=== PATIENT | male | born 1930 | race African-American/Black ===

== ENCOUNTER 2016-06-13 12:39 | Observation (INO) | payer MEDICARE, MEDICAID ==
[2016-06-13 13:20] LABS: ABSOLUTE LYMPHOCYTES (AUTO) 1.3 10^3/uL (0.5-4.7); ABSOLUTE MONOCYTES (AUTO) 0.5 10^3/uL (0.1-1.4); ABSOLUTE NEUT (AUTO) 3.7 10^3/uL (1.7-8.2); BASOPHILS % (AUTO) 0.7 % (0-2); EOSINOPHILS % (AUTO) 0.7 % (0-6); HEMATOCRIT 37.8 % (37.9-51.0); HEMOGLOBIN 12.7 g/dL (13.5-17.0); HGB HCT DIFFERENCE 0.3; LYMPHOCYTES % (AUTO) 23.5 % (13-45); MEAN CORPUSCULAR HEMOGLOBIN 28.8 pg (27.0-33.4); MEAN CORPUSCULAR HGB CONC 33.7 g/dL (32.0-36.0); MEAN CORPUSCULAR VOLUME 85 fl (80-97); MONOCYTES % (AUTO) 8.1 % (3-13); RED BLOOD COUNT 4.42 10^6/uL (4.35-5.55); RED CELL DISTRIBUTION WIDTH 15.8 % (11.5-14.0); WHITE BLOOD COUNT 5.6 10^3/uL (4.0-10.5)
[2016-06-13 13:27] LABS: PROTHROMBIN TIME 12.6 SEC (11.4-15.4)
[2016-06-13 13:28] LABS: PARTIAL THROMBOPLASTIN TIME 30.2 SEC (23.5-35.8)
--- NOTE | 2016-06-13 13:38 | EKG REPORT ---
SEVERITY:- ABNORMAL ECG - SINUS TACHYCARDIA BIATRIAL ABNORMALITIES BORDERLINE LEFT AXIS DEVIATION : Confirmed by: Susanne Gordon MD 13-Jun-2016 13:37:47
[2016-06-13 13:46] LABS: ALANINE AMINOTRANSFERASE 16 U/L (21-72); ALBUMIN 3.4 g/dL (3.5-5.0); ALKALINE PHOSPHATASE 77 U/L (38-126); ANION GAP 12 (5-19); ASPARTATE AMINO TRANSFERASE 31 U/L (17-59); BILIRUBIN,TOTAL 0.6 mg/dL (0.2-1.3); BLOOD UREA NITROGEN 35 mg/dL (7-20); CALCIUM 9.3 mg/dL (8.4-10.2); CARBON DIOXIDE 26 mmol/L (22-30); CHLORIDE 101 mmol/L (98-107); CREATINE KINASE 352 U/L (55-170); CREATININE RESULT 1.97 mg/dL (0.52-1.25); GLUCOSE 100 mg/dL (75-110); POTASSIUM 4.5 mmol/L (3.6-5.0); SODIUM 138.7 mmol/L (137-145); TOTAL PROTEIN 6.7 g/dL (6.3-8.2)
[2016-06-13 13:57] LABS: CREATINE KINASE MB 4.99 ng/mL (<4.55)
[2016-06-13 14:09] LABS: TROPONIN I 0.034 ng/mL
[2016-06-13] MEDS ORDERED: ASPIRIN/DIPYRIDAMOLE 25-200 MG 1 CAP.SR CPMP.12HR PO ONE (14:25)
--- NOTE | 2016-06-13 14:25 | ER Document Report ---
ED General - General Chief Complaint: S/S of Possible Stroke Stated Complaint: POSSIBLE STROKE Mode of Arrival: Medic Information source: Patient Notes: 86 yr old male with hx of htn presents with complaints of left facial droop, unresponsiveness, loss of bladder function. pt denies any fevers or chills, nausea vomiting or diarrhea. pt admits ot headache symptoms resolved by the time ems brought patient ot the ED - HPI Onset: Just prior to arrival Onset/Duration: Sudden Quality of pain: No pain Severity: Mild Pain Level: Denies Associated symptoms: Weakness Exacerbated by: Denies Relieved by: Denies Similar symptoms previously: No Recently seen / treated by doctor: No - Related Data Home Medications: Current Home Medications Atorvastatin Calcium [Lipitor 40 mg Tablet] 40 mg PO QHS 06/13/16 [History] Hydralazine HCl [Apresoline 50 mg Tablet] 100 mg PO Q12 06/13/16 [History] Past Medical History - Social History Smoking Status: Never Smoker Cigarette use (# per day): No Chew tobacco use (# tins/day): No Smoking Education Provided: No Family History: Reviewed & Not Pertinent - Past Medical History Cardiac Medical History: Reports: Hx Hypercholesterolemia, Hx Hypertension Review of Systems - Review of Systems Notes: REVIEW OF SYSTEMS: CONSTITUTIONAL : Denies fever, chills, or sweats. Denies recent illness. EENT: Denies eye, ear, throat, or mouth pain or symptoms. Denies nasal or sinus congestion or discharge. Denies throat, tongue, or mouth swelling or difficulty swallowing. CARDIOVASCULAR: Denies chest pain. Denies palpitations or racing or irregular heart beat. Denies ankle edema. RESPIRATORY: Denies cough, cold, or chest congestion. Denies shortness of breath, difficulty breathing, or wheezing. GASTROINTESTINAL: Denies abdominal pain or distention. Denies nausea, vomiting , or diarrhea. Denies blood in vomitus, stools, or per rectum. Denies black, tarry stools. Denies constipation. GENITOURINARY: Denies difficulty urinating, painful urination, burning, frequency, blood in urine, or discharge. MUSCULOSKELETAL: Denies back or neck pain or stiffness. Denies joint pain or swelling. SKIN: Denies rash, lesions or sores. HEMATOLOGIC : Denies easy bruising or bleeding. LYMPHATIC: Denies swollen, enlarged glands. NEUROLOGICAL: left facial droop, unresponsiveness PSYCHIATRIC: Denies anxiety or stress. Denies depression, suicidal ideation, or homicidal ideation. ALL OTHER SYSTEMS REVIEWED AND NEGATIVE. Dictation was performed using [employer] voice recognition software PHYSICAL EXAMINATION: GENERAL: Well-appearing, well-nourished and in no acute distress. HEAD: Atraumatic, normocephalic. EYES: Pupils equal round and reactive to light, extraocular movements intact, sclera anicteric, conjunctiva are normal. ENT: Nares patent, oropharynx clear without exudates. Moist mucous membranes. NECK: Normal range of motion, supple without lymphadenopathy LUNGS: Breath sounds clear to auscultation bilaterally and equal. No wheezes rales or rhonchi. HEART: Regular rate and rhythm without murmurs ABDOMEN: Soft, nontender, nondistended abdomen. No guarding, no rebound. No masses appreciated. Musculoskeletal: Normal range of motion, no pitting or edema. No cyanosis. NEUROLOGICAL: Cranial nerves grossly intact. Normal speech, normal gait. Normal sensory, motor exams PSYCH: Normal mood, normal affect. SKIN: Warm, Dry, normal turgor, no rashes or lesions noted. Physical Exam - Vital signs Vitals: Resp BP Pulse Ox 21 H 160/87 H 97 06/13/16 12:52 06/13/16 12:52 06/13/16 12:52 Course - Re-evaluation Re-evalutation: 06/13/16 15:30 NIH score on arrival is 0 Pt is otherwise stable, will admit to Dr Cuevas , requests aggrenox , 06/13/16 15:31 pt does not meet criteria for thrombolysis - Vital Signs Vital signs: Temp Pulse Resp BP Pulse Ox 97.2 F 102 H 25 H 148/73 H 99 06/13/16 13:00 06/13/16 13:00 06/13/16 13:13 06/13/16 13:13 06/13/16 13:13 - Laboratory Result Diagrams: 06/13/16 13:10 06/13/16 13:10 Laboratory results interpreted by me: 06/13/16 06/13/16 06/13/16 13:10 13:10 13:10 Hgb 12.7 L Hct 37.8 L RDW 15.8 H BUN 35 H Creatinine 1.97 H Est GFR ( Amer) 39 L Est GFR (Non-Af Amer) 32 L ALT 16 L Creatine Kinase 352 H CK-MB (CK-2) 4.99 H Albumin 3.4 L - Diagnostic Test Radiology reviewed: Image reviewed, Reports reviewed - EKG Interpretation by Me EKG shows normal: Sinus rhythm, [place], QRS Complexes Discharge - Discharge Clinical Impression: Facial droop TIA (transient ischemic attack) Qualifiers: Transient cerebral ischemia type: unspecified Qualified Code(s): G45.9 - Transient cerebral ischemic attack, unspecified Chronic kidney disease Qualifiers: Chronic kidney disease stage: stage 3 (moderate) Qualified Code(s): N18.3 - Chronic kidney disease, stage 3 (moderate) Condition: Stable Disposition: ADMITTED INPATIENT Admitting Provider: Santosh Unit Admitted: Telemetry Referrals: SG CUEVAS MD [Primary Care Provider] - Follow up as needed
[2016-06-13] MEDS ORDERED: NORMAL SALINE 1000 ML 1,000 ML IV ONE (15:38)
[2016-06-13] MEDS ORDERED: ACETAMINOPHEN 325 MG TABLET PO PRN (16:43)
[2016-06-13] MEDS ORDERED: ENOXAPARIN SODIUM INJ 30 MG/0.3 ML DISP.SYRIN SUBCUT ONE (17:00)
--- NOTE | 2016-06-13 17:48 | PDOC H&P ---
History of Present Illness Admission Date/PCP: 06/13/16 15:47 SG CUEVAS MD Patient complains of: slurred speech History of Present Illness: SG BARKER is a 86 year old male 10am malaise facial droop & slurred speech gone before rescue squat got him to ER. NIH scale 0. 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 Bland Lives with: Family Smoking Status: Former Smoker Last Time Smoked: 1979 Frequency of Alcohol Use: None Hx Recreational Drug Use: No Hx Prescription Drug Abuse: No Family History Family History: Hypertension Parental Family History Reviewed: Yes Children Family History Reviewed: Yes Sibling(s) Family History Reviewed.: Yes Medication/Allergy Home Medications: Atorvastatin Calcium [Lipitor 40 mg Tablet] 40 mg PO QHS 06/13/16 Hydralazine HCl [Apresoline 50 mg Tablet] 100 mg PO Q12 06/13/16 Allergies/Adverse Reactions: No Known Allergies Allergy (Unverified 06/13/16 16:24) Review of Systems Constitutional: ABSENT: fever(s), weakness, weight loss Nose, Mouth, and Throat: ABSENT: headache(s), sore throat Cardiovascular: ABSENT: chest pain, dyspnea on exertion, orthropnea Respiratory: ABSENT: cough Gastrointestinal: ABSENT: constipation, diarrhea, vomiting Genitourinary: ABSENT: dysuria, hematuria Neurological: PRESENT: abnormal speech. ABSENT: abnormal gait, focal weakness Allergic/Immunologic: PRESENT: seasonal rhinorrhea Physical Exam Vital Signs: Temp Pulse Resp BP Pulse Ox 97.8 F 118 H 26 H 175/84 H 99 06/13/16 16:40 06/13/16 16:00 06/13/16 16:42 06/13/16 16:42 06/13/16 16:42 General appearance: PRESENT: no acute distress Mouth exam: PRESENT: dry mucosa, neck supple, tongue midline Respiratory exam: PRESENT: clear to auscultation ferny Cardiovascular exam: PRESENT: irregular rhythm - skips. P120, systolic murmur, tachycardia. ABSENT: diastolic murmur GI/Abdominal exam: ABSENT: mass, organolmegaly Extremities exam: PRESENT: pedal edema - 1+ Neurological exam: PRESENT: alert, oriented to person, oriented to place, oriented to time, oriented to situation, reflexes normal, CN II-XII grossly intact. ABSENT: motor sensory deficit, aphasic Psychiatric exam: PRESENT: appropriate affect Skin exam: PRESENT: other - scaly legs Results Laboratory Results: Abnormal - 24 hr 06/13/16 06/13/16 06/13/16 13:10 13:10 13:10 Hgb 12.7 L Hct 37.8 L RDW 15.8 H BUN 35 H Creatinine 1.97 H Est GFR ( Amer) 39 L Est GFR (Non-Af Amer) 32 L ALT 16 L Creatine Kinase 352 H CK-MB (CK-2) 4.99 H Albumin 3.4 L EKG Comments: tachy Impressions: Chest X-Ray 06/13/16 12:41 IMPRESSION: NO ACUTE RADIOGRAPHIC FINDING IN THE CHEST. Head CT 06/13/16 12:41 IMPRESSION: MILD CHRONIC CHANGES OF ATROPHY AND MICROVASCULAR ISCHEMIA. NO ACUTE PROCESS. Assessment & Plan - Diagnosis (1) TIA (transient ischemic attack) Qualifiers: Transient cerebral ischemia type: carotid artery syndrome (hemispheric) Qualified Code(s): G45.1 - Carotid artery syndrome (hemispheric) Is this a current diagnosis for this admission?: YesPlan: echo doppler mri aggrenox
[2016-06-13] MEDS ORDERED: INFLUENZA ADLT QUAD (36MOS+) 2016-17 VAC 0.5 ML SYR IM PRN (18:04)
[2016-06-13] MEDS: HYDRALAZINE HCL 50 MG TABLET PO SCH (21:01)
[2016-06-13] MEDS: ASPIRIN/DIPYRIDAMOLE 25-200 MG 1 CAP.SR CPMP.12HR PO SCH (21:02)
[2016-06-13] MEDS: FAMOTIDINE 20 MG TABLET PO SCH (21:03)
[2016-06-13] MEDS: ATORVASTATIN CALCIUM 40 MG TABLET PO SCH (21:03)
--- NOTE | 2016-06-14 07:16 | PDOC PROGRESS REPORT ---
Subjective Progress Note for:: 06/14/16 Subjective:: no new symptoms Physical Exam Vital Signs: Temp Pulse Resp BP Pulse Ox 98.2 F 88 17 143/61 H 99 06/14/16 04:36 06/14/16 04:36 06/14/16 04:36 06/14/16 04:36 06/14/16 04:36 Intake & Output 06/12/16 06/13/16 06/14/16 07:59 07:59 07:59 Intake Total 3 Output Total 310 Balance -307 General appearance: PRESENT: no acute distress Respiratory exam: PRESENT: clear to auscultation ferny Cardiovascular exam: ABSENT: diastolic murmur, irregular rhythm, systolic murmur GI/Abdominal exam: ABSENT: mass, organolmegaly, tenderness Extremities exam: PRESENT: pedal edema - R1+ Neurological exam: PRESENT: other - normal Ryder' Results Impressions: Head MRI 06/13/16 00:00 IMPRESSION: ATROPHY AND CHRONIC MICRO-VASCULAR ISCHEMIC CHANGES. OTHERWISE NORMAL MRI OF THE BRAIN WITHOUT INTRAVENOUS GADOLINIUM CONTRAST. Chest X-Ray 06/13/16 12:41 IMPRESSION: NO ACUTE RADIOGRAPHIC FINDING IN THE CHEST. Head CT 06/13/16 12:41 IMPRESSION: MILD CHRONIC CHANGES OF ATROPHY AND MICROVASCULAR ISCHEMIA. NO ACUTE PROCESS. 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 Doppler,echo,OT,PT pending. Continue aggrenox.
[2016-06-14] MEDS: ENOXAPARIN SODIUM INJ 30 MG/0.3 ML DISP.SYRIN SUBCUT SCH (07:46)
[2016-06-14] MEDS: ASPIRIN/DIPYRIDAMOLE 25-200 MG 1 CAP.SR CPMP.12HR PO SCH ×2 (09:00→21:09)
[2016-06-14] MEDS: FAMOTIDINE 20 MG TABLET PO SCH ×2 (09:01→21:08)
[2016-06-14] MEDS: HYDRALAZINE HCL 50 MG TABLET PO SCH ×2 (09:01→21:08)
[2016-06-14] MEDS: ATORVASTATIN CALCIUM 40 MG TABLET PO SCH (21:06)
[2016-06-15] MEDS: ENOXAPARIN SODIUM INJ 30 MG/0.3 ML DISP.SYRIN SUBCUT SCH (07:33)
--- NOTE | 2016-06-15 08:29 | PDOC DISCHARGE SUMMARY ---
General - Admit/Disc Date/PCP Admission Date/Primary Care Provider: 06/13/16 16:43 SG CUEVAS MD Discharge Date: 06/15/16 - Discharge Diagnosis (1) TIA (transient ischemic attack) Is this a current diagnosis for this admission?: YesSummary: mri small vessel disease. Doppler negative. PO OT said unsafe to walk alone. Walkered 4' with 2 assistants. Stone Breaker 5of5. R dorsiflexion 4.5. Cant lift R leg off bed. Does not qualify for SNF so home health. (2) Dementia Is this a current diagnosis for this admission?: YesSummary: disoriented to time. Long decline. Apraxias - Additional Information Resuscitation Status: Full Code Discharge Diet: Cardiac Discharge Activity: Activity As Tolerated Home Medications: Atorvastatin Calcium [Lipitor 40 mg Tablet] 40 mg PO QHS 06/13/16 Hydralazine HCl [Apresoline 50 mg Tablet] 100 mg PO Q12 06/13/16 Aspirin/Dipyridamole [Aggrenox 25 mg/200 mg Capsule SA] 1 cap.sr PO Q12 #60 cpmp.12hr 06/15/16 History of Present Illness History of Present Illness: SG BARKER is a 86 year old male 10am malaise facial droop & slurred speech gone before rescue squat got him to ER. NIH scale 0. Hospital Course Hospital Course: see above Physical Exam Vital Signs: Temp Pulse Resp BP Pulse Ox 98.6 F 74 20 163/75 H 99 06/15/16 03:56 06/15/16 08:06 06/15/16 04:00 06/15/16 04:00 06/15/16 04:00 Intake & Output 06/14/16 06/15/16 06/16/16 07:59 07:59 07:59 Intake Total 13 926 Output Total 610 750 Balance -597 176 Weight 179 lb 7.3 oz 171 lb 8.314 oz General appearance: PRESENT: no acute distress Respiratory exam: PRESENT: clear to auscultation ferny Cardiovascular exam: ABSENT: diastolic murmur, irregular rhythm, systolic murmur GI/Abdominal exam: ABSENT: mass, organolmegaly, tenderness Extremities exam: PRESENT: pedal edema - R1+ Neurological exam: PRESENT: abnormal gait, ataxia, motor sensory deficit - R dorsiflexion 4.5of5. ABSENT: oriented to time Results Laboratory Results: Labs- Last Values WBC 5.6 10^3/uL (4.0-10.5) 06/13/16 13:10 RBC 4.42 10^6/uL (4.35-5.55) 06/13/16 13:10 Hgb 12.7 g/dL (13.5-17.0) L 06/13/16 13:10 Hct 37.8 % (37.9-51.0) L 06/13/16 13:10 MCV 85 fl (80-97) 06/13/16 13:10 MCH 28.8 pg (27.0-33.4) 06/13/16 13:10 MCHC 33.7 g/dL (32.0-36.0) 06/13/16 13:10 RDW 15.8 % (11.5-14.0) H 06/13/16 13:10 Plt Count 177 10^3/uL (150-450) 06/13/16 13:10 Seg Neutrophils % 67.0 % (42-78) 06/13/16 13:10 Lymphocytes % 23.5 % (13-45) 06/13/16 13:10 Monocytes % 8.1 % (3-13) 06/13/16 13:10 Eosinophils % 0.7 % (0-6) 06/13/16 13:10 Basophils % 0.7 % (0-2) 06/13/16 13:10 Absolute Neutrophils 3.7 10^3/uL (1.7-8.2) 06/13/16 13:10 Absolute Lymphocytes 1.3 10^3/uL (0.5-4.7) 06/13/16 13:10 Absolute Monocytes 0.5 10^3/uL (0.1-1.4) 06/13/16 13:10 Absolute Eosinophils 0.0 10^3/uL (0.0-0.6) 06/13/16 13:10 Absolute Basophils 0.0 10^3/uL (0.0-0.2) 06/13/16 13:10 PT 12.6 SEC (11.4-15.4) 06/13/16 13:10 INR 0.92 06/13/16 13:10 APTT 30.2 SEC (23.5-35.8) 06/13/16 13:10 Sodium 138.7 mmol/L (137-145) 06/13/16 13:10 Potassium 4.5 mmol/L (3.6-5.0) 06/13/16 13:10 Chloride 101 mmol/L (98-107) 06/13/16 13:10 Carbon Dioxide 26 mmol/L (22-30) 06/13/16 13:10 Anion Gap 12 (5-19) 06/13/16 13:10 BUN 35 mg/dL (7-20) H 06/13/16 13:10 Creatinine 1.97 mg/dL (0.52-1.25) H 06/13/16 13:10 Est GFR ( Amer) 39 (>60) L 06/13/16 13:10 Est GFR (Non-Af Amer) 32 (>60) L 06/13/16 13:10 Glucose 100 mg/dL (75-110) 06/13/16 13:10 Calcium 9.3 mg/dL (8.4-10.2) 06/13/16 13:10 Total Bilirubin 0.6 mg/dL (0.2-1.3) 06/13/16 13:10 Direct Bilirubin 0.0 mg/dL (0.0-0.3) 06/13/16 13:10 AST 31 U/L (17-59) 06/13/16 13:10 ALT 16 U/L (21-72) L 06/13/16 13:10 Alkaline Phosphatase 77 U/L (38-126) 06/13/16 13:10 Creatine Kinase 352 U/L (55-170) H 06/13/16 13:10 CK-MB (CK-2) 4.99 ng/mL (<4.55) H 06/13/16 13:10 Troponin I 0.034 ng/mL 06/13/16 13:10 Total Protein 6.7 g/dL (6.3-8.2) 06/13/16 13:10 Albumin 3.4 g/dL (3.5-5.0) L 06/13/16 13:10 Impressions: Head MRI 06/13/16 00:00 IMPRESSION: ATROPHY AND CHRONIC MICRO-VASCULAR ISCHEMIC CHANGES. OTHERWISE NORMAL MRI OF THE BRAIN WITHOUT INTRAVENOUS GADOLINIUM CONTRAST. Chest X-Ray 06/13/16 12:41 IMPRESSION: NO ACUTE RADIOGRAPHIC FINDING IN THE CHEST. Head CT 06/13/16 12:41 IMPRESSION: MILD CHRONIC CHANGES OF ATROPHY AND MICROVASCULAR ISCHEMIA. NO ACUTE PROCESS. Carotid Doppler Study 06/14/16 00:00 IMPRESSION: NO HEMODYNAMICALLY SIGNIFICANT STENOSIS. Qualifiers PATEINT BEING DISCHARGED WITH ANY OF THE FOLLOWING DIAGNOSIS?: No Plan Discharge Plan: home health
[2016-06-15] MEDS: FAMOTIDINE 20 MG TABLET PO SCH (09:57)
[2016-06-15] MEDS: HYDRALAZINE HCL 50 MG TABLET PO SCH (09:58)
[2016-06-15] MEDS: ASPIRIN/DIPYRIDAMOLE 25-200 MG 1 CAP.SR CPMP.12HR PO SCH (09:59)
[2016-06-15 10:45] VITALS: BP 150/58
== END 2016-06-15 11:45 | disposition home health service (06) ==
LOC: ER 12:39 → INTOOBSV 15:47 → UNDOADMOB 15:47 → EH 15:47 → 3W 17:05
PROVIDERS: ADMIT Family Medicine; ATTEND Family Medicine
DX: I69.351 Hemiplegia and hemiparesis following cerebral infarction affecting right dominant side (principal); F03.90 Unspecified dementia, unspecified severity, without behavioral disturbance, psychotic disturbance, mood disturbance, and anxiety; Z79.82 Long term (current) use of aspirin; I50.9 Heart failure, unspecified; I25.10 Atherosclerotic heart disease of native coronary artery without angina pectoris; I25.2 Old myocardial infarction; I10 Essential (primary) hypertension; E78.5 Hyperlipidemia, unspecified; I13.10 Hypertensive heart and chronic kidney disease without heart failure, with stage 1 through stage 4 chronic kidney disease, or unspecified chronic kidney disease; N18.9 Chronic kidney disease, unspecified; Z23 Encounter for immunization
CPT/HCPCS: 93005; 99285; 36415; 82553; 82550; 85025; 85610; 85730; 80053; 84484; 93880; 70551; 71010; 70450; 90686; 93010; 97163; 97167; 90471; G0378 ×3; A9270 ×9; J3490 ×3; J1650 ×3; J7030; G8978; G8979; G8987; G8988

== ENCOUNTER 2017-04-15 10:34 | Emergency (ER) | payer MEDICARE, MEDICAID ==
[2017-04-15 11:41] LABS: ABSOLUTE LYMPHOCYTES (AUTO) 0.7 10^3/uL (0.5-4.7); ABSOLUTE MONOCYTES (AUTO) 0.4 10^3/uL (0.1-1.4); BASOPHILS % (AUTO) 0.2 % (0-2); EOSINOPHILS % (AUTO) 0.5 % (0-6); HEMATOCRIT 34.3 % (37.9-51.0); HEMOGLOBIN 11.6 g/dL (13.5-17.0); HGB HCT DIFFERENCE 0.5; LYMPHOCYTES % (AUTO) 12.1 % (13-45); MEAN CORPUSCULAR HEMOGLOBIN 28.2 pg (27.0-33.4); MEAN CORPUSCULAR HGB CONC 33.8 g/dL (32.0-36.0); MEAN CORPUSCULAR VOLUME 83 fl (80-97); MONOCYTES % (AUTO) 5.8 % (3-13); RED BLOOD COUNT 4.12 10^6/uL (4.35-5.55); RED CELL DISTRIBUTION WIDTH 16.2 % (11.5-14.0); SEGMENTED NEUTROPHILS % (AUTO) 81.4 % (42-78); WHITE BLOOD COUNT 6.1 10^3/uL (4.0-10.5)
[2017-04-15 11:43] LABS: PARTIAL THROMBOPLASTIN TIME 26.8 SEC (23.5-35.8)
[2017-04-15 13:27] LABS: ALANINE AMINOTRANSFERASE 54 U/L (21-72); ALBUMIN 3.8 g/dL (3.5-5.0); ALKALINE PHOSPHATASE 79 U/L (38-126); ANION GAP 13 (5-19); ASPARTATE AMINO TRANSFERASE 88 U/L (17-59); BILIRUBIN,DIRECT 0.5 mg/dL (0.0-0.4); BILIRUBIN,TOTAL 0.7 mg/dL (0.2-1.3); BLOOD UREA NITROGEN 43 mg/dL (7-20); CALCIUM 8.6 mg/dL (8.4-10.2); CARBON DIOXIDE 24 mmol/L (22-30); CHLORIDE 99 mmol/L (98-107); CREATININE RESULT 2.79 mg/dL (0.52-1.25); GLUCOSE 108 mg/dL (75-110); POTASSIUM 4.2 mmol/L (3.6-5.0); SODIUM 136.3 mmol/L (137-145); TOTAL PROTEIN 6.7 g/dL (6.3-8.2)
--- NOTE | 2017-04-15 14:02 | ER Document Report ---
ED General - General Chief Complaint: Fall Stated Complaint: ALTERED MENTAL STATUS Time Seen by Provider: 04/15/17 11:33 Mode of Arrival: Medic Information source: Patient Notes: 86-year-old male presents with complaints of syncopal episode lasting 30 minutes prior to arrival. Friend notes patient was minimally responsive. Upon EMS arrival patient was alert at his baseline. Denies any complaints denies any symptoms at all. Patient here denies any complaints other TRAVEL OUTSIDE OF THE [place] IN LAST 30 DAYS: No - HPI Onset: Just prior to arrival Onset/Duration: Sudden Quality of pain: No pain Severity: None Pain Level: Denies Associated symptoms: Slow to respond Exacerbated by: Denies Relieved by: Denies Similar symptoms previously: Yes Recently seen / treated by doctor: No - Related Data Allergies/Adverse Reactions: No Known Allergies Allergy (Unverified 06/13/16 16:24) Past Medical History - Social History Smoking Status: Never Smoker Cigarette use (# per day): No Chew tobacco use (# tins/day): No Smoking Education Provided: No Family History: Hypertension - Past Medical History Cardiac Medical History: Reports: Hx Congestive Heart Failure, Hx Coronary Artery Disease, Hx Heart Attack, Hx Hypercholesterolemia, Hx Hypertension Musculoskeltal Medical History: Reports Hx Arthritis, Reports Hx Gout Psychiatric Medical History: Reports: Hx Dementia Denies: Hx Depression Past Surgical History: Reports: Hx Orthopedic Surgery - cervical laminectomy fusion Review of Systems - Review of Systems Notes: REVIEW OF SYSTEMS: CONSTITUTIONAL : Denies fever, chills, or sweats. Denies recent illness. EENT: Denies eye, ear, throat, or mouth pain or symptoms. Denies nasal or sinus congestion or discharge. Denies throat, tongue, or mouth swelling or difficulty swallowing. CARDIOVASCULAR: Denies chest pain. Denies palpitations or racing or irregular heart beat. Denies ankle edema. RESPIRATORY: Denies cough, cold, or chest congestion. Denies shortness of breath, difficulty breathing, or wheezing. GASTROINTESTINAL: Denies abdominal pain or distention. Denies nausea, vomiting , or diarrhea. Denies blood in vomitus, stools, or per rectum. Denies black, tarry stools. Denies constipation. GENITOURINARY: Denies difficulty urinating, painful urination, burning, frequency, blood in urine, or discharge. MUSCULOSKELETAL: Denies back or neck pain or stiffness. Denies joint pain or swelling. SKIN: Denies rash, lesions or sores. HEMATOLOGIC : Denies easy bruising or bleeding. LYMPHATIC: Denies swollen, enlarged glands. NEUROLOGICAL: Per family decreased responsiveness over the past 30 minutes PSYCHIATRIC: Denies anxiety or stress. Denies depression, suicidal ideation, or homicidal ideation. ALL OTHER SYSTEMS REVIEWED AND NEGATIVE. Dictation was performed using [employer] voice recognition software PHYSICAL EXAMINATION: GENERAL: Well-appearing, well-nourished and in no acute distress. HEAD: Atraumatic, normocephalic. EYES: Pupils equal round and reactive to light, extraocular movements intact, sclera anicteric, conjunctiva are normal. ENT: Nares patent, oropharynx clear without exudates. Moist mucous membranes. NECK: Normal range of motion, supple without lymphadenopathy LUNGS: Breath sounds clear to auscultation bilaterally and equal. No wheezes rales or rhonchi. HEART: Regular rate and rhythm without murmurs ABDOMEN: Soft, nontender, nondistended abdomen. No guarding, no rebound. No masses appreciated. Musculoskeletal: Normal range of motion, no pitting or edema. No cyanosis. NEUROLOGICAL: Baseline weakness baseline mentation PSYCH: Normal mood, normal affect. SKIN: Warm, Dry, normal turgor, no rashes or lesions noted. Course - Re-evaluation Re-evalutation: 04/15/17 15:[address] Cuevas since I am unsure of the patients cause of syncope like episode lasting [address] cuevas defers on admission since we have no specific finding, he requests follow up in the office at 11am tomorrow I believe this is appropriate as the patient overall looks quite well is in no distress has no complaints there is no signs of seizure-like activity no new weakness numbness or neurological deficits 04/15/17 15:23 Worsening renal insufficiency is noted, patient was given IV fluids After performing a Medical Screening Examination, I estimate there is LOW risk for INTRACRANIAL HEMORRHAGE, ISCHEMIC CVA, MALIGNANT DYSRHYTHMIA, ACUTE CORONARY SYNDROME, MENINGITIS, PULMONARY EMBOLISM, or SEPSIS thus I consider the discharge disposition reasonable. I have reevaluated this patient multiple times and no significant life threatening changes are noted. The patient and I have discussed the diagnosis and risks, and we agree with discharging home with close follow-up with the understanding that symptoms and presentations can change. We also discussed returning to the Emergency Department immediately if new or worsening symptoms occur. We have discussed the symptoms which are most concerning (e.g., changing or worsening pain, weakness, vomiting, fever) that necessitate immediate return. 04/15/17 15:23 - Laboratory Result Diagrams: 04/15/17 11:14 04/15/17 12:32 Laboratory results interpreted by me: 04/15/17 04/15/17 04/15/17 11:14 12:32 14:41 RBC 4.12 L Hgb 11.6 L Hct 34.3 L RDW 16.2 H Seg Neutrophils % 81.4 H Lymphocytes % 12.1 L Sodium 136.3 L BUN 43 H Creatinine 2.79 H Est GFR ( Amer) 26 L Est GFR (Non-Af Amer) 22 L Direct Bilirubin 0.5 H AST 88 H Urine Protein >=500 H Urine Blood SMALL H - Diagnostic Test Radiology reviewed: Image reviewed, Reports reviewed Discharge - Discharge Clinical Impression: Syncope Qualifiers: Syncope type: unspecified Qualified Code(s): R55 - Syncope and collapse CKD (chronic kidney disease) Qualifiers: Chronic kidney disease stage: stage 2 (mild) Qualified Code(s): N18.2 - Chronic kidney disease, stage 2 (mild) Condition: Stable Disposition: HOME, SELF-CARE Instructions: Syncopal Episode ([facility]) Additional Instructions: Follow-up with Dr. Bowman tomorrow at 11 AM return immediately if there are any symptoms or any other concerns Referrals: SG CUEVAS MD [Primary Care Provider] - Follow up tomorrow
--- NOTE | 2017-04-15 14:12 | EKG REPORT ---
SEVERITY:- BORDERLINE ECG - SINUS RHYTHM BORDERLINE RIGHT AXIS DEVIATION BORDERLINE T ABNORMALITIES, INFERIOR LEADS BORDERLINE PROLONGED QT INTERVAL : Confirmed by: Amadou Hurtado 15-Apr-2017 14:12:04
--- NOTE | 2017-04-15 14:13 | EKG REPORT ---
SEVERITY:- ABNORMAL ECG - SINUS RHYTHM RIGHT ATRIAL ABNORMALITY LEFT VENTRICULAR HYPERTROPHY : Confirmed by: Amadou Hurtado 15-Apr-2017 14:12:22
--- NOTE | 2017-04-15 14:43 | RADIOLOGY REPORT (SQ) ---
EXAM DESCRIPTION: CT HEAD WITHOUT COMPLETED DATE/TIME: 04/15/2017 2:31 pm REASON FOR STUDY: syncope, fall COMPARISON: None. TECHNIQUE: Axial images acquired through the brain without intravenous contrast. Images reviewed wi th bone, brain and subdural windows. Images stored on PACS. All CT scanners at this facility use dose modulation, iterative reconstruction, and/or weight based d osing when appropriate to reduce radiation dose to as low as reasonably achievable (ALARA). [facility]: Dose Right [facility]: CareDose [facility]: Dose Right [facility]: Teradose 4D [facility]: Smart [place] RADIATION DOSE: Up-to-date CT equipment and radiation dose reduction techniques were employed. CTDIv ol: 28.0 mGy. DLP: 560 mGy-cm.mGy. LIMITATIONS: None. FINDINGS: VENTRICLES: Prominent. CEREBRUM: No masses. No hemorrhage. No midline shift. Areas of low density in the white matter mos t likely due to chronic micro-vascular ischemic change. No evidence for acute infarction. CEREBELLUM: No masses. No hemorrhage. No alteration of density. No evidence for acute infarction. EXTRAAXIAL SPACES: Age-related involutional change. No fluid collections. No masses. ORBITS AND GLOBE: No intra- or extraconal masses. Normal contour of globe without masses. CALVARIUM: No fracture. PARANASAL SINUSES: Fluid right maxillary sinus. SOFT TISSUES: No mass or hematoma. OTHER: No other significant finding. IMPRESSION: CHRONIC CHANGES OF ATROPHY AND MICROVASCULAR ISCHEMIA. NO ACUTE PROCESS. EVIDENCE OF ACUTE STROKE: NO. TECHNICAL DOCUMENTATION: JOB ID: [id number] Quality ID # [id number]: Final reports with documentation of one or more dose reduction techniques (e.g., Au tomated exposure control, adjustment of the mA and/or kV according to patient size, use of iterative reconstruction technique) 2010 [employer]- All Rights Reserved
--- NOTE | 2017-04-15 14:52 | RADIOLOGY REPORT (SQ) ---
EXAM DESCRIPTION: CT CHEST WITHOUT COMPLETED DATE/TIME: 04/15/2017 2:31 pm REASON FOR STUDY: syncope, fall COMPARISON: None. TECHNIQUE: CT scan performed of the chest without intravenous contrast. Images reviewed with lung, soft tissue and bone windows. Reconstructed coronal and sagittal MPR images reviewed. All images st ored on PACS. All CT scanners at this facility use dose modulation, iterative reconstruction, and/or weight based d osing when appropriate to reduce radiation dose to as low as reasonably achievable (ALARA). [facility]: Dose Right [facility]: CareDose [facility]: Dose Right [facility]: Teradose 4D [facility]: [employer] RADIATION DOSE: Up-to-date CT equipment and radiation dose reduction techniques were employed. CTDIv ol: 14.4 mGy. DLP: 527 mGy-cm. mGy. LIMITATIONS: No technical limitations. FINDINGS: LUNGS AND PLEURA: Subsegmental dependent airspace disease in the lower lobes. No effusion s. HILAR AND MEDIASTINAL STRUCTURES: No identified masses or abnormal nodes. No obvious aneurysm. HEART AND VASCULAR STRUCTURES: Cardiomegaly. Small pericardial effusion. UPPER ABDOMEN: No significant findings. Limited exam. THYROID AND OTHER SOFT TISSUES: No masses. No adenopathy. BONES: No significant finding. HARDWARE: None in the chest. OTHER: No other significant findings. IMPRESSION: Dependent airspace disease most likely atelectasis. TECHNICAL DOCUMENTATION: JOB ID: [id number] Quality ID # [id number]: Final reports with documentation of one or more dose reduction techniques (e.g., Au tomated exposure control, adjustment of the mA and/or kV according to patient size, use of iterative reconstruction technique) 2010 [employer]- All Rights Reserved
[2017-04-15 14:58] LABS: AMORPHOUS SEDIMENT,URINE TRACE /HPF; APPEARANCE,URINE SLIGHTLY-CLOUDY; BILIRUBIN,URINE NEGATIVE (NEGATIVE); GLUCOSE, URINE NEGATIVE (NEGATIVE); KETONES,URINE NEGATIVE (NEGATIVE); LEUKOCYTE ESTERASE,URINE NEGATIVE (NEGATIVE); NITRITE,URINE NEGATIVE (NEGATIVE); PROTEIN,URINE >=500 mg/dL (NEGATIVE); URINE SPECIFIC GRAVITY 1.011; UROBILINOGEN,URINE NEGATIVE mg/dL (<2.0)
[2017-04-15] MEDS ORDERED: NORMAL SALINE 1000 ML 1,000 ML IV ONE (15:15)
[2017-04-15 17:15] VITALS: BP 168/95
== END 2017-04-15 18:00 | disposition home or self-care (01) ==
LOC: ER 10:34
DX: R55 Syncope and collapse (principal); N18.2 Chronic kidney disease, stage 2 (mild); I50.9 Heart failure, unspecified; I25.10 Atherosclerotic heart disease of native coronary artery without angina pectoris; I25.2 Old myocardial infarction; E78.00 Pure hypercholesterolemia, unspecified; I11.0 Hypertensive heart disease with heart failure; F03.90 Unspecified dementia, unspecified severity, without behavioral disturbance, psychotic disturbance, mood disturbance, and anxiety; Z98.1 Arthrodesis status
CPT/HCPCS: 93005; 99285; 96360; 51701; 36415; 85025; 85610; 85730; 80053; 81001; 84484; 70450; 71250; 93010; J7030

== ENCOUNTER 2017-04-16 13:10 | Inpatient (IN) | payer MEDICARE, MEDICAID ==
[2017-04-16] MEDS ORDERED: NORMAL SALINE 1000 ML 1,000 ML IV ONE (13:52)
--- NOTE | 2017-04-16 13:52 | ER Document Report ---
ED Medical Screen (RME) - General Chief Complaint: General Weakness Stated Complaint: BODY WEAKNESS Time Seen by Provider: 04/16/17 13:50 Notes: Patient was seen here yesterday and discharged with follow-up at Dr. Frost's office today. Dr. Frost has sent the patient to the emergency department and recommends admission for skilled nursing placement. This is the report from family. Patient denies any significant complaints at this time other than some generalized weakness. TRAVEL OUTSIDE OF THE [place] IN LAST 30 DAYS: No - Related Data Allergies/Adverse Reactions: No Known Allergies Allergy (Verified 04/16/17 13:20) Past Medical History - Past Medical History Cardiac Medical History: Reports: Hx Congestive Heart Failure, Hx Coronary Artery Disease, Hx Heart Attack, Hx Hypercholesterolemia, Hx Hypertension Musculoskeltal Medical History: Reports Hx Arthritis, Reports Hx Gout Psychiatric Medical History: Reports: Hx Dementia Denies: Hx Depression Past Surgical History: Reports: Hx Orthopedic Surgery - cervical laminectomy fusion - Immunizations Hx Diphtheria, Pertussis, Tetanus Vaccination: No History of Influenza Vaccine for 03/2017 - 08/2017 Season: No
[2017-04-16 14:31] LABS: ABSOLUTE MONOCYTES (AUTO) 0.4 10^3/uL (0.1-1.4); ABSOLUTE NEUT (AUTO) 3.3 10^3/uL (1.7-8.2); BASOPHILS % (AUTO) 0.5 % (0-2); EOSINOPHILS % (AUTO) 0.8 % (0-6); HEMATOCRIT 34.1 % (37.9-51.0); HEMOGLOBIN 11.6 g/dL (13.5-17.0); HGB HCT DIFFERENCE 0.7; LYMPHOCYTES % (AUTO) 21.6 % (13-45); MEAN CORPUSCULAR HEMOGLOBIN 28.7 pg (27.0-33.4); MEAN CORPUSCULAR HGB CONC 34.1 g/dL (32.0-36.0); MEAN CORPUSCULAR VOLUME 84 fl (80-97); RED BLOOD COUNT 4.04 10^6/uL (4.35-5.55); RED CELL DISTRIBUTION WIDTH 16.2 % (11.5-14.0); SEGMENTED NEUTROPHILS % (AUTO) 69.1 % (42-78); WHITE BLOOD COUNT 4.8 10^3/uL (4.0-10.5)
[2017-04-16 14:56] LABS: ALANINE AMINOTRANSFERASE 56 U/L (21-72); ALBUMIN 3.8 g/dL (3.5-5.0); ALKALINE PHOSPHATASE 70 U/L (38-126); ANION GAP 14 (5-19); ASPARTATE AMINO TRANSFERASE 94 U/L (17-59); BILIRUBIN,DIRECT 0.5 mg/dL (0.0-0.4); BILIRUBIN,TOTAL 0.5 mg/dL (0.2-1.3); BLOOD UREA NITROGEN 50 mg/dL (7-20); CALCIUM 8.5 mg/dL (8.4-10.2); CARBON DIOXIDE 22 mmol/L (22-30); CHLORIDE 101 mmol/L (98-107); CREATININE RESULT 2.91 mg/dL (0.52-1.25); GLUCOSE 110 mg/dL (75-110); POTASSIUM 4.4 mmol/L (3.6-5.0); SODIUM 137.3 mmol/L (137-145); TOTAL PROTEIN 6.6 g/dL (6.3-8.2)
--- NOTE | 2017-04-16 15:01 | ER Document Report ---
ED Dizziness/Weakness - General Chief Complaint: General Weakness Stated Complaint: BODY WEAKNESS Time Seen by Provider: 04/16/17 13:50 Mode of Arrival: Wheelchair Information source: Patient Notes: 86 yo male that lives alone at [facility] is here with his sister and from sent over from Dr. Villarreal office- 11 am appointment He had syncopal episode yesterday, was evaluated in ER and Dr. Singh had called dr. villarreal who did not want to admit him but have a f/iu appt at 11am. According Sister Buffy Waite- [phone] , cell phone [phone], Lu Adler [phone] TRAVEL OUTSIDE OF THE [place] IN LAST 30 DAYS: No - Related Data Allergies/Adverse Reactions: No Known Allergies Allergy (Verified 04/16/17 13:20) Home Medications: Current Home Medications Atorvastatin Calcium [Lipitor 40 mg Tablet] 40 mg PO QHS 04/16/17 [History] Hydralazine HCl 100 mg PO Q12 04/16/17 [History] Past Medical History - General Information source: Patient - Social History Smoking Status: Former Smoker Chew tobacco use (# tins/day): No Frequency of alcohol use: None Drug Abuse: None Lives with: Alone Family History: Hypertension Patient has suicidal ideation: No Patient has homicidal ideation: No - Past Medical History Cardiac Medical History: Reports: Hx Congestive Heart Failure, Hx Coronary Artery Disease, Hx Heart Attack, Hx Hypercholesterolemia, Hx Hypertension Neurological Medical History: Reports: Hx Cerebrovascular Accident Renal/ Medical History: Reports: Other - renal insufficiency. Denies: Hx Peritoneal Dialysis Musculoskeltal Medical History: Reports Hx Arthritis, Reports Hx Gout Psychiatric Medical History: Reports: Hx Dementia Denies: Hx Depression Past Surgical History: Reports: Hx Orthopedic Surgery - cervical laminectomy fusion - Immunizations Hx Diphtheria, Pertussis, Tetanus Vaccination: No Review of Systems - Review of Systems Constitutional: See HPI EENT: No symptoms reported Cardiovascular: No symptoms reported Respiratory: No symptoms reported Gastrointestinal: No symptoms reported Genitourinary: No symptoms reported Male Genitourinary: No symptoms reported Musculoskeletal: No symptoms reported Skin: No symptoms reported Hematologic/Lymphatic: No symptoms reported Neurological/Psychological: No symptoms reported Physical Exam - Vital signs Vitals: Temp Pulse Resp BP Pulse Ox 98.2 F 76 14 165/82 H 96 04/16/17 13:22 04/16/17 13:22 04/16/17 13:22 04/16/17 13:22 04/16/17 13:22 Interpretation: Normal - General General appearance: Appears well, Alert - HEENT Head: Normocephalic, Atraumatic Eyes: Normal Pupils: PERRL - Respiratory Respiratory status: No respiratory distress Chest status: Nontender Breath sounds: Normal Chest palpation: Normal - Cardiovascular Rhythm: Regular Heart sounds: Normal auscultation Murmur: No - Abdominal Inspection: Normal Distension: No distension Bowel sounds: Normal Tenderness: Nontender Organomegaly: No organomegaly - Back Back: Normal, Nontender - Extremities General upper extremity: Normal inspection, Nontender, Normal color, Normal ROM , Normal temperature General lower extremity: Normal inspection, Nontender, Normal color, Normal ROM , Normal temperature, Normal weight bearing. No: Kartik's sign - Neurological Neuro grossly intact: Yes Cognition: Normal Orientation: AAOx4 [place] Coma Scale Eye Opening: Spontaneous [place] Coma Scale Verbal: Oriented [place] Coma Scale Motor: Obeys Commands [place] Coma Scale Total: 15 Speech: Normal Motor strength normal: LUE, RUE, LLE, RLE Sensory: Normal - Psychological Associated symptoms: Normal affect, Normal mood - Skin Skin Temperature: Warm Skin Moisture: Dry Skin Color: Normal Course - Re-evaluation Re-evalutation: 04/16/17 15:[address] Villarreal who will admit to telemetry bed observation due to generalized weakness and inability to walk which he states has been coming on for 8 months.. - Vital Signs Vital signs: Temp Pulse Resp BP Pulse Ox 98.3 F 81 16 145/66 H 94 04/17/17 19:50 04/17/17 19:50 04/17/17 19:50 04/17/17 19:50 04/17/17 19:50 - Laboratory Result Diagrams: 04/16/17 14:12 04/17/17 05:39 Laboratory results interpreted by me: 04/16/17 04/16/17 04/16/17 14:12 14:12 15:35 RBC 4.04 L Hgb 11.6 L Hct 34.1 L RDW 16.2 H BUN 50 H Creatinine 2.91 H Est GFR ( Amer) 25 L Est GFR (Non-Af Amer) 21 L Direct Bilirubin 0.5 H AST 94 H Urine Protein >=500 H Urine Blood SMALL H Ur Leukocyte Esterase LARGE H Discharge - Discharge Clinical Impression: Weakness, Dehydration, non ambulatory Acute on chronic renal failure Qualifiers: Acute renal failure type: unspecified Chronic kidney disease stage: unspecified stage Qualified Code(s): N17.9 - Acute kidney failure, unspecified Dementia Qualifiers: Dementia type: Alzheimer's disease Alzheimer's disease onset: unspecified onset Dementia behavioral disturbance: without behavioral disturbance Qualified Code(s): G30.9 - Alzheimer's disease, unspecified Congestive heart failure Qualifiers: Congestive heart failure type: unspecified congestive heart failure type Congestive heart failure chronicity: unspecified congestive heart failure chronicity Qualified Code(s): I50.9 - Heart failure, unspecified CKD (chronic kidney disease) Qualifiers: Chronic kidney disease stage: unspecified stage Qualified Code(s): N18.9 - Chronic kidney disease, unspecified Incontinence Qualifiers: Incontinence type: urinary Urinary Incontinence type: functional incontinence Qualified Code(s): 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
[2017-04-16 15:59] LABS: APPEARANCE,URINE SLIGHTLY-CLOUDY; BILIRUBIN,URINE NEGATIVE (NEGATIVE); GLUCOSE, URINE NEGATIVE (NEGATIVE); KETONES,URINE NEGATIVE (NEGATIVE); LEUKOCYTE ESTERASE,URINE LARGE (NEGATIVE); NITRITE,URINE NEGATIVE (NEGATIVE); PROTEIN,URINE >=500 mg/dL (NEGATIVE); URINE SPECIFIC GRAVITY 1.014; UROBILINOGEN,URINE NEGATIVE mg/dL (<2.0)
[2017-04-16] MEDS ORDERED: CLONIDINE HCL 0.2 MG TABLET PO ONE (16:00)
[2017-04-16] MEDS ORDERED: 1/2 NORMAL SALINE 1,000 ML IV PRN (16:29)
--- NOTE | 2017-04-16 17:01 | PDOC H&P ---
History of Present Illness Admission Date/PCP: 04/16/17 15:40 SG CUEVAS MD Patient complains of: passed out yesterday. cant walk today History of Present Illness: SG BARKER is a 86 year old male who said he fell against R ribs yesterday around 8am. Neighbor spoke with him around 10am and saw him slump over for 30min without tonus or clonus. EMS arrived at that time and spoke with him. He was incontinent of urine. ER amezcua revealed only small vessel disease and inccrease in creatinine from 1.7 in august to 2.[address] chest basal atalectasis. In office today he could not stant without 2 assistants or R dorsiflex or flex hips. I was concerned he will no longer be able to live alone. Back in ER cr1.9. 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 In june MMSE was 23. Mobility was a bigger issue. R dorsiflexion was 4.8of5. Past Medical History Cardiac Medical History: Reports: Congestive Heart Failure, Coronary Artery Disease, Myocardial Infarction, Hyperlipidema, Hypertension Pulmonary Medical History: Reports: None EENT Medical History: Reports: None Neurological Medical History: Reports: Ischemic CVA Endocrine Medical History: Reports: None Renal/ Medical History: Reports: Chronic Kidney Disease Malignancy Medical History: Reports: None GI Medical History: Reports: Peptic Ulcer Disease Musculoskeltal Medical History: Reports: Arthritis, Gout, Other - spinal stenosis [id number] Psychiatric Medical History: Reports: Dementia Denies: Depression Hematology: Reports: Anemia - renal Infectious Medical History: Reports: None Past Surgical History Past Surgical History: Reports: Orthopedic Surgery - cervical laminectomy fusion Social History Information Source: Dr. Bland Lives with: Alone Smoking Status: Former Smoker Number of Years Smokin Last Time Smoked: 1979 Frequency of Alcohol Use: None Hx Recreational Drug Use: No Drugs: None Hx Prescription Drug Abuse: No - Advance Directive Resuscitation Status: Full Code Family History Family History: Hypertension Parental Family History Reviewed: Yes Children Family History Reviewed: Yes Sibling(s) Family History Reviewed.: Yes Medication/Allergy Home Medications: Atorvastatin Calcium [Lipitor 40 mg Tablet] 40 mg PO QHS 04/16/17 Hydralazine HCl 100 mg PO Q12 04/16/17 Allergies/Adverse Reactions: No Known Allergies Allergy (Verified 04/16/17 13:20) Review of Systems ROS unobtainable: Due to mental status Physical Exam Vital Signs: Temp Pulse Resp BP Pulse Ox 98.2 F 76 18 195/85 H 97 04/16/17 14:10 04/16/17 14:10 04/16/17 15:31 04/16/17 15:31 04/16/17 15:31 General appearance: PRESENT: no acute distress Mouth exam: PRESENT: moist Neck exam: ABSENT: lymphadenopathy, tenderness, thyromegaly, tracheal deviation Respiratory exam: PRESENT: clear to auscultation ferny Cardiovascular exam: ABSENT: diastolic murmur, irregular rhythm, systolic murmur GI/Abdominal exam: ABSENT: mass, organolmegaly, tenderness Extremities exam: PRESENT: pedal edema - R2+ Ltrace Neurological exam: PRESENT: oriented to person, oriented to time, abnormal gait - 2assistants to stand up, ataxia, CN II-XII grossly intact, motor sensory deficit - R dorsiflexion 3of5. B psoas 3of5 pinprick+ feet. ABSENT: oriented to situation - president=fox, reflexes normal - no ankle jerks Psychiatric exam: PRESENT: appropriate affect Results Laboratory Results: Abnormal - 24 hr 04/16/17 04/16/17 04/16/17 14:12 14:12 15:35 RBC 4.04 L Hgb 11.6 L Hct 34.1 L RDW 16.2 H BUN 50 H Creatinine 2.91 H Est GFR ( Amer) 25 L Est GFR (Non-Af Amer) 21 L Direct Bilirubin 0.5 H AST 94 H Urine Protein >=500 H Urine Blood SMALL H Ur Leukocyte Esterase LARGE H Assessment & Plan - Diagnosis (1) SANJUANITA (acute kidney injury) Is this a current diagnosis for this admission?: Yes Plan: half normal 150/h. Had bolus NS (2) Sepsis Qualifiers: Sepsis type: sepsis due to unspecified organism Qualified Code(s): A41.9 - Sepsis, unspecified organism Is this a current diagnosis for this admission?: Yes Plan: pyuria now not yesterday. Cultures. 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 Is this a current diagnosis for this admission?: Yes (4) Vascular dementia Qualifiers: Dementia behavioral disturbance: without behavioral disturbance Qualified Code(s): F01.50 - Vascular dementia without behavioral disturbance Is this a current diagnosis for this admission?: Yes Plan: SNF - Inpatient Certification Based on my medical assessment, after consideration of the patient's comorbidities, presenting symptoms, or acuity I expect that the services needed warrant INPATIENT care.: Yes I certify that my determination is in accordance with my understanding of Medicare's requirements for reasonable and necessary INPATIENT services [42 CFR 412.3e].: Yes Medical Necessity: Failure to Improve With Outpatient Therapy, Significant Comorbidiites Make Outpatient Treatment Too Risky, Need Close Monitoring Due to Risk of Patient Decompensation, Need For IV Fluids, Need For Continuous Telemetry Monitoring, Need for IV Antibiotics, Risk of Complication if Not Cared For in Hospital, Risk of Diagnosis Which Will Require Inpatient Eval/Care/ Monitoring
[2017-04-16] MEDS ORDERED: ENOXAPARIN SODIUM INJ 30 MG/0.3 ML DISP.SYRIN SUBCUT ONE (18:00)
[2017-04-16] MEDS ORDERED: CEFTRIAXONE 1 GM/D5W RTU 1 GM/50 ML RTUPB IV ONE (19:30)
[2017-04-16] MEDS ORDERED: (PENDING PHARMACY ID) (Hydralazine Hcl [Hydralazine Hcl] 100 MG) PO SCH (22:00)
[2017-04-16] MEDS: HYDRALAZINE HCL 50 MG TABLET PO SCH (22:59)
--- NOTE | 2017-04-17 06:38 | PDOC PROGRESS REPORT ---
Subjective Progress Note for:: 04/17/17 Subjective:: occasional cough with pain in R hip radiating to foot. No dysuria. Physical Exam Vital Signs: Temp Pulse Resp BP Pulse Ox 97.9 F 66 16 137/62 H 93 04/17/17 03:51 04/17/17 03:51 04/17/17 03:51 04/17/17 03:51 04/17/17 03:51 Intake & Output 04/15/17 04/16/17 04/17/17 07:59 07:59 07:59 Intake Total 480 Output Total 600 Balance -120 Weight 162 lb 0.636 oz General appearance: PRESENT: no acute distress Respiratory exam: PRESENT: clear to auscultation ferny Cardiovascular exam: ABSENT: diastolic murmur, irregular rhythm, systolic murmur GI/Abdominal exam: ABSENT: mass, organolmegaly, tenderness Musculoskeletal exam: ABSENT: tenderness - R slr negative Neurological exam: PRESENT: oriented to situation. ABSENT: motor sensory deficit - R dorsiflexion now 5of5 Psychiatric exam: PRESENT: appropriate affect Results Laboratory Results: Abnormal - 24 hr 04/16/17 04/16/17 04/16/17 14:12 14:12 15:35 RBC 4.04 L Hgb 11.6 L Hct 34.1 L RDW 16.2 H BUN 50 H Creatinine 2.91 H Est GFR ( Amer) 25 L Est GFR (Non-Af Amer) 21 L Direct Bilirubin 0.5 H AST 94 H Urine Protein >=500 H Urine Blood SMALL H Ur Leukocyte Esterase LARGE H Assessment & Plan - Diagnosis (1) SANJUANITA (acute kidney injury) Is this a current diagnosis for this admission?: Yes Plan: half normal 150 (2) Sepsis Qualifiers: Sepsis type: sepsis due to unspecified organism Qualified Code(s): A41.9 - Sepsis, unspecified organism Is this a current diagnosis for this admission?: Yes Plan: ceftri (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
[2017-04-17 06:40] LABS: ANION GAP 8 (5-19); BLOOD UREA NITROGEN 43 mg/dL (7-20); CALCIUM 7.5 mg/dL (8.4-10.2); CARBON DIOXIDE 22 mmol/L (22-30); CHLORIDE 103 mmol/L (98-107); CREATININE RESULT 2.41 mg/dL (0.52-1.25); GLUCOSE 104 mg/dL (75-110); POTASSIUM 3.6 mmol/L (3.6-5.0); SODIUM 133.2 mmol/L (137-145)
[2017-04-17] MEDS: ENOXAPARIN SODIUM INJ 30 MG/0.3 ML DISP.SYRIN SUBCUT SCH (09:03)
[2017-04-17] MEDS: HYDRALAZINE HCL 50 MG TABLET PO SCH ×2 (09:04→21:22)
[2017-04-17] MEDS ORDERED: INFLUENZA ADLT QUAD (36MOS+) 2017-18 VAC 0.5 ML SYR IM PRN (11:39)
[2017-04-17] MEDS: CEFTRIAXONE 1 GM/D5W RTU 1 GM/50 ML RTUPB IV SCH (18:07)
[2017-04-18 05:55] LABS: ANION GAP 8 (5-19); BLOOD UREA NITROGEN 41 mg/dL (7-20); CALCIUM 7.5 mg/dL (8.4-10.2); CARBON DIOXIDE 22 mmol/L (22-30); CHLORIDE 105 mmol/L (98-107); CREATININE RESULT 2.36 mg/dL (0.52-1.25); GLUCOSE 104 mg/dL (75-110); POTASSIUM 3.8 mmol/L (3.6-5.0); SODIUM 135.2 mmol/L (137-145)
--- NOTE | 2017-04-18 08:32 | PDOC PROGRESS REPORT ---
Subjective Progress Note for:: 04/18/17 Subjective:: still cant walk. Still orthopnea as at home Physical Exam Vital Signs: Temp Pulse Resp BP Pulse Ox 98.8 F 72 16 160/75 H 95 04/18/17 03:25 04/18/17 07:00 04/18/17 03:25 04/18/17 03:25 04/18/17 03:25 Intake & Output 04/17/17 04/18/17 04/19/17 07:59 07:59 07:59 Intake Total 2280 3380 Output Total 600 1100 Balance 1680 2280 Weight 162 lb 0.636 oz 162 lb 0.636 oz General appearance: PRESENT: no acute distress Respiratory exam: PRESENT: clear to auscultation ferny Cardiovascular exam: ABSENT: diastolic murmur, irregular rhythm, systolic murmur GI/Abdominal exam: ABSENT: mass, organolmegaly, tenderness Extremities exam: ABSENT: pedal edema - trace L Psychiatric exam: PRESENT: appropriate affect Results Laboratory Results: 04/18/17 04:08 04/18/17 04:08 Sodium 135.2 L Potassium 3.8 Chloride 105 Carbon Dioxide 22 Anion Gap 8 BUN 41 H Creatinine 2.36 H Est GFR ( Amer) 32 L Est GFR (Non-Af Amer) 26 L Glucose 104 Calcium 7.5 L Assessment & Plan - Diagnosis (1) SANJUANITA (acute kidney injury) Is this a current diagnosis for this admission?: Yes Plan: cr2.9,2.4. Continue NS75 (2) Sepsis Qualifiers: Sepsis type: sepsis due to unspecified organism Qualified Code(s): A41.9 - Sepsis, unspecified organism Is this a current diagnosis for this admission?: Yes Plan: cultures negative at 24h. 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
[2017-04-18] MEDS: ENOXAPARIN SODIUM INJ 30 MG/0.3 ML DISP.SYRIN SUBCUT SCH (09:08)
[2017-04-18] MEDS: HYDRALAZINE HCL 50 MG TABLET PO SCH ×2 (09:08→22:22)
--- NOTE | 2017-04-18 10:04 | Physician Advisory Note ---
Physician Advisor ProgressNote .: Pursuant to the plan for [facility], I have reviewed the medical record for this patient. Physician Advisor Statement: Please consider documentin. Whenever documenting sepsis, need to specify (1) the underlying infection, ( 2) evidence supporting the dx*, (3) POA or not. 2. "Acute hyponatremia, likely due to intravascular volume depletion" *Discussion: Sepsis-2 criteria = 2 or more of following, must include 1 of 1st 2: T>100.4, WBC>12, HR>90, RR>20. Sepsis-3 criteria = acute increase of 2+ SOFA points: total GCS<15, MAP <70, P/ F ratio <400, plts <150, Cr 1.2+, total bili 1.2+. *Sepsis is important to document when present, but has become over-called at times & is a target for denials. - When making this dx, we need to give the specific supporting evidence. - When pt meets some sepsis criteria but clinically not felt to be septic, we should say that sepsis was considered but ruled out. Thanks! CK
[2017-04-18] MEDS: CEFTRIAXONE 1 GM/D5W RTU 1 GM/50 ML RTUPB IV SCH (17:53)
[2017-04-19] MEDS: NORMAL SALINE 1000 ML 1,000 ML IV PRN (00:19)
[2017-04-19 05:24] LABS: ANION GAP 10 (5-19); BLOOD UREA NITROGEN 43 mg/dL (7-20); CALCIUM 7.9 mg/dL (8.4-10.2); CARBON DIOXIDE 21 mmol/L (22-30); CHLORIDE 108 mmol/L (98-107); CREATININE RESULT 2.21 mg/dL (0.52-1.25); GLUCOSE 104 mg/dL (75-110); POTASSIUM 4.3 mmol/L (3.6-5.0)
[2017-04-19] MEDS ORDERED: LACTULOSE SYRUP 20 GM/30 ML UDCUP PO ONE (07:00)
--- NOTE | 2017-04-19 07:08 | PDOC PROGRESS REPORT ---
Subjective Progress Note for:: 04/19/17 Subjective:: still cant walk. Physical Exam Vital Signs: Temp Pulse Resp BP Pulse Ox 97.9 F 69 20 183/71 H 97 04/18/17 16:46 04/19/17 02:00 04/18/17 16:46 04/18/17 16:46 04/18/17 16:46 Intake & Output 04/17/17 04/18/17 04/19/17 07:59 07:59 07:59 Intake Total 2280 3380 2649 Output Total 600 1100 3085 Balance 1680 2280 -436 Weight 162 lb 0.636 oz 162 lb 0.636 oz 162 lb 0.636 oz General appearance: PRESENT: no acute distress Respiratory exam: PRESENT: clear to auscultation ferny Cardiovascular exam: ABSENT: diastolic murmur, irregular rhythm, systolic murmur GI/Abdominal exam: ABSENT: mass, organolmegaly, tenderness Psychiatric exam: PRESENT: appropriate affect Results Laboratory Results: 04/19/17 03:56 04/19/17 03:56 Sodium 139.0 Potassium 4.3 Chloride 108 H Carbon Dioxide 21 L Anion Gap 10 BUN 43 H Creatinine 2.21 H Est GFR ( Amer) 34 L Est GFR (Non-Af Amer) 28 L Glucose 104 Calcium 7.9 L Assessment & Plan - Diagnosis (1) SANJUANITA (acute kidney injury) Is this a current diagnosis for this admission?: Yes Plan: creatinine 2.9 2.4 2.2. Continue IVF (2) Sepsis Qualifiers: Sepsis type: sepsis due to unspecified organism Qualified Code(s): A41.9 - Sepsis, unspecified organism Is this a current diagnosis for this admission?: Yes Plan: 20k gram negative. Considered & ruled out. 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
[2017-04-19] MEDS: ENOXAPARIN SODIUM INJ 30 MG/0.3 ML DISP.SYRIN SUBCUT SCH (09:28)
[2017-04-19] MEDS: HYDRALAZINE HCL 50 MG TABLET PO SCH ×2 (09:28→23:58)
[2017-04-19] MEDS: AMLODIPINE BESYLATE 10 MG TABLET PO SCH (09:29)
[2017-04-19] MEDS: LACTULOSE SYRUP 20 GM/30 ML UDCUP PO SCH (18:23)
--- NOTE | 2017-04-20 07:55 | PDOC PROGRESS REPORT ---
Subjective Progress Note for:: 04/20/17 Subjective:: ok. Eating. No PT yesterday Physical Exam Vital Signs: Temp Pulse Resp BP Pulse Ox 97.5 F 77 18 166/76 H 97 04/20/17 04:06 04/20/17 07:00 04/20/17 04:06 04/20/17 04:06 04/20/17 04:06 Intake & Output 04/18/17 04/19/17 04/20/17 07:59 07:59 07:59 Intake Total 3380 2649 3139 Output Total 1100 3085 1100 Balance 2280 -436 2039 Weight 162 lb 0.636 oz 162 lb 0.636 oz 162 lb 0.636 oz General appearance: PRESENT: no acute distress Respiratory exam: PRESENT: clear to auscultation ferny Cardiovascular exam: ABSENT: diastolic murmur, irregular rhythm, systolic murmur GI/Abdominal exam: ABSENT: mass, organolmegaly, tenderness Extremities exam: ABSENT: pedal edema Psychiatric exam: PRESENT: appropriate affect Results Laboratory Results: 04/19/17 03:56 Assessment & Plan - Diagnosis (1) SANJUANITA (acute kidney injury) Is this a current diagnosis for this admission?: Yes Plan: bmp (2) Sepsis Qualifiers: Sepsis type: sepsis due to unspecified organism Qualified Code(s): A41.9 - Sepsis, unspecified organism Is this a current diagnosis for this admission?: No (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 Is this a current diagnosis for this admission?: Yes Plan: no rales on saline (4) Vascular dementia Qualifiers: Dementia behavioral disturbance: without behavioral disturbance Qualified Code(s): F01.50 - Vascular dementia without behavioral disturbance Is this a current diagnosis for this admission?: Yes Plan: SNF (5) Dilutional hyponatremia Is this a current diagnosis for this admission?: Yes Plan: resolved - Inpatient Certification Medical Necessity: Significant Comorbidiites Make Outpatient Treatment Too Risky , Need For IV Fluids, Risk of Complication if Not Cared For in Hospital, Risk of Diagnosis Which Will Require Inpatient Eval/Care/Monitoring
[2017-04-20] MEDS: NORMAL SALINE 1000 ML 1,000 ML IV PRN (08:44)
[2017-04-20 08:50] LABS: ANION GAP 10 (5-19); BLOOD UREA NITROGEN 33 mg/dL (7-20); CALCIUM 8.1 mg/dL (8.4-10.2); CARBON DIOXIDE 22 mmol/L (22-30); CHLORIDE 109 mmol/L (98-107); CREATININE RESULT 1.93 mg/dL (0.52-1.25); GLUCOSE 111 mg/dL (75-110); POTASSIUM 4.1 mmol/L (3.6-5.0); SODIUM 141.4 mmol/L (137-145)
[2017-04-20] MEDS: ENOXAPARIN SODIUM INJ 30 MG/0.3 ML DISP.SYRIN SUBCUT SCH (09:11)
[2017-04-20] MEDS: HYDRALAZINE HCL 50 MG TABLET PO SCH ×2 (09:12→21:35)
[2017-04-20] MEDS: AMLODIPINE BESYLATE 10 MG TABLET PO SCH (09:12)
[2017-04-20] MEDS: LACTULOSE SYRUP 20 GM/30 ML UDCUP PO SCH ×2 (09:12→17:45)
--- NOTE | 2017-04-21 08:06 | PDOC PROGRESS REPORT ---
Subjective Progress Note for:: 04/21/17 Subjective:: still R pleuritic pain where fell at home. Physical Exam Vital Signs: Temp Pulse Resp BP Pulse Ox 98.3 F 71 16 139/70 H 98 04/21/17 04:00 04/21/17 07:00 04/21/17 04:00 04/21/17 04:00 04/21/17 04:00 Intake & Output 04/19/17 04/20/17 04/21/17 07:59 07:59 07:59 Intake Total 2649 3139 2735 Output Total 3085 1100 1050 Balance -436 2039 1685 Weight 162 lb 0.636 oz 162 lb 0.636 oz 162 lb 0.636 oz General appearance: PRESENT: no acute distress Respiratory exam: PRESENT: other - rub R base Cardiovascular exam: PRESENT: systolic murmur. ABSENT: diastolic murmur - L sternal border, irregular rhythm Murmur grade: 2 GI/Abdominal exam: ABSENT: mass, organolmegaly, tenderness Extremities exam: ABSENT: pedal edema Neurological exam: PRESENT: alert Psychiatric exam: PRESENT: appropriate affect Results Laboratory Results: 04/20/17 08:27 04/20/17 08:27 Sodium 141.4 Potassium 4.1 Chloride 109 H Carbon Dioxide 22 Anion Gap 10 BUN 33 H Creatinine 1.93 H Est GFR ( Amer) 40 L Est GFR (Non-Af Amer) 33 L Glucose 111 H Calcium 8.1 L Assessment & Plan - Diagnosis (1) Chronic combined systolic and diastolic heart failure Is this a current diagnosis for this admission?: Yes Plan: bp still high. Add toprol (2) Vascular dementia Qualifiers: Dementia behavioral disturbance: without behavioral disturbance Qualified Code(s): F01.50 - Vascular dementia without behavioral disturbance Is this a current diagnosis for this admission?: Yes Plan: waiting on bed offer (3) Dilutional hyponatremia Is this a current diagnosis for this admission?: Yes (4) SANJUANITA (acute kidney injury) Is this a current diagnosis for this admission?: Yes Plan: creatinine below melody baseline 2.0. Stop IVF (5) Sepsis Qualifiers: Sepsis type: sepsis due to unspecified organism Qualified Code(s): A41.9 - Sepsis, unspecified organism Is this a current diagnosis for this admission?: No (6) Right rib fracture Qualifiers: Encounter type: subsequent encounter Rib fracture type: single rib Fracture type: closed Fracture healing: with routine healing Qualified Code( s): S22.31XD - Fracture of one rib, right side, subsequent encounter for fracture with routine healing Is this a current diagnosis for this admission?: Yes Plan: although not seen on ct 6d ago, I suspect this is cause of pain and rub. Atalectasis was seen. - Inpatient Certification Medical Necessity: Risk of Complication if Not Cared For in Hospital - SNF rehab pending
[2017-04-21 08:56] LABS: ANION GAP 8 (5-19); BLOOD UREA NITROGEN 33 mg/dL (7-20); CARBON DIOXIDE 22 mmol/L (22-30); CHLORIDE 110 mmol/L (98-107); CREATININE RESULT 1.89 mg/dL (0.52-1.25); GLUCOSE 97 mg/dL (75-110); POTASSIUM 4.3 mmol/L (3.6-5.0); SODIUM 139.9 mmol/L (137-145)
[2017-04-21] MEDS: ENOXAPARIN SODIUM INJ 30 MG/0.3 ML DISP.SYRIN SUBCUT SCH (09:38)
[2017-04-21] MEDS: HYDRALAZINE HCL 50 MG TABLET PO SCH ×2 (09:39→23:01)
[2017-04-21] MEDS: AMLODIPINE BESYLATE 10 MG TABLET PO SCH (09:39)
[2017-04-21] MEDS: LACTULOSE SYRUP 20 GM/30 ML UDCUP PO SCH ×2 (09:39→17:19)
[2017-04-21] MEDS: METOPROLOL SUCCINATE 50 MG TAB.SR.24H PO SCH (09:40)
--- NOTE | 2017-04-22 08:50 | PDOC PROGRESS REPORT ---
Subjective Progress Note for:: 04/22/17 Subjective:: same R pleuritic pain. Occasional cough Physical Exam Vital Signs: Temp Pulse Resp BP Pulse Ox 98.2 F 64 16 135/67 H 98 04/22/17 03:56 04/22/17 03:56 04/22/17 03:56 04/22/17 03:56 04/22/17 03:56 Intake & Output 04/21/17 04/22/17 04/23/17 07:59 07:59 07:59 Intake Total 2735 1280 Output Total 1050 900 Balance 1685 380 Weight 162 lb 0.636 oz 162 lb 0.636 oz General appearance: PRESENT: no acute distress Respiratory exam: PRESENT: chest wall tenderness - mild diffuse lateral R ribs, rhonchi Cardiovascular exam: ABSENT: diastolic murmur, irregular rhythm, systolic murmur Murmur grade: 2 GI/Abdominal exam: ABSENT: mass, organolmegaly, tenderness Extremities exam: ABSENT: pedal edema Psychiatric exam: PRESENT: appropriate affect Results Laboratory Results: 04/21/17 08:16 Sodium 139.9 Potassium 4.3 Chloride 110 H Carbon Dioxide 22 Anion Gap 8 BUN 33 H Creatinine 1.89 H Est GFR ( Amer) 41 L Est GFR (Non-Af Amer) 34 L Glucose 97 Calcium 8.0 L 04/16/17 19:35 Blood Blood Culture - Final NO GROWTH IN 5 DAYS 04/16/17 18:44 Blood Blood Culture - Final NO GROWTH IN 5 DAYS Assessment & Plan - Diagnosis (1) Vascular dementia Qualifiers: Dementia behavioral disturbance: without behavioral disturbance Qualified Code(s): F01.50 - Vascular dementia without behavioral disturbance Is this a current diagnosis for this admission?: Yes (2) SANJUANITA (acute kidney injury) Is this a current diagnosis for this admission?: Yes (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 Is this a current diagnosis for this admission?: Yes (4) Right rib fracture Qualifiers: Encounter type: subsequent encounter Rib fracture type: single rib Fracture type: closed Fracture healing: with routine healing Qualified Code( s): S22.31XD - Fracture of one rib, right side, subsequent encounter for fracture with routine healing Is this a current diagnosis for this admission?: Yes Plan: observe (5) Dilutional hyponatremia Is this a current diagnosis for this admission?: Yes - Inpatient Certification Medical Necessity: Significant Comorbidiites Make Outpatient Treatment Too Risky , Risk of Complication if Not Cared For in Hospital - Plan Summary Plan Summary: to rehab when bed offered
[2017-04-22 09:07] LABS: ANION GAP 9 (5-19); BLOOD UREA NITROGEN 38 mg/dL (7-20); CALCIUM 8.3 mg/dL (8.4-10.2); CARBON DIOXIDE 23 mmol/L (22-30); CHLORIDE 106 mmol/L (98-107); CREATININE RESULT 1.95 mg/dL (0.52-1.25); GLUCOSE 101 mg/dL (75-110); POTASSIUM 4.6 mmol/L (3.6-5.0); SODIUM 138.1 mmol/L (137-145)
[2017-04-22] MEDS: LACTULOSE SYRUP 20 GM/30 ML UDCUP PO SCH ×2 (10:09→17:45)
[2017-04-22] MEDS: ENOXAPARIN SODIUM INJ 30 MG/0.3 ML DISP.SYRIN SUBCUT SCH (10:09)
[2017-04-22] MEDS: HYDRALAZINE HCL 50 MG TABLET PO SCH ×2 (10:09→22:30)
[2017-04-22] MEDS: AMLODIPINE BESYLATE 10 MG TABLET PO SCH (10:10)
[2017-04-22] MEDS: LUBIPROSTONE 24 MCG CAPSULE PO SCH ×2 (10:10→17:45)
[2017-04-22] MEDS: METOPROLOL SUCCINATE 50 MG TAB.SR.24H PO SCH (10:10)
--- NOTE | 2017-04-23 08:05 | PDOC PROGRESS REPORT ---
Subjective Progress Note for:: 04/23/17 Subjective:: mild R rib pain. No PT yesterday Physical Exam Vital Signs: Temp Pulse Resp BP Pulse Ox 97.5 F 60 20 143/63 H 97 04/23/17 04:31 04/23/17 07:00 04/23/17 04:31 04/23/17 04:31 04/23/17 04:31 Intake & Output 04/22/17 04/23/17 04/24/17 07:59 07:59 07:59 Intake Total 1280 240 Output Total 900 1070 Balance 380 -830 Weight 162 lb 0.636 oz 176 lb 9.444 oz General appearance: PRESENT: no acute distress Respiratory exam: PRESENT: clear to auscultation ferny Cardiovascular exam: PRESENT: systolic murmur. ABSENT: diastolic murmur, irregular rhythm Murmur grade: 2 GI/Abdominal exam: ABSENT: mass, organolmegaly, tenderness Extremities exam: ABSENT: pedal edema Psychiatric exam: PRESENT: appropriate affect Results Laboratory Results: 04/22/17 08:03 04/22/17 08:03 Sodium 138.1 Potassium 4.6 Chloride 106 Carbon Dioxide 23 Anion Gap 9 BUN 38 H Creatinine 1.95 H Est GFR ( Amer) 40 L Est GFR (Non-Af Amer) 33 L Glucose 101 Calcium 8.3 L Assessment & Plan - Diagnosis (1) Vascular dementia Qualifiers: Dementia behavioral disturbance: without behavioral disturbance Qualified Code(s): F01.50 - Vascular dementia without behavioral disturbance Is this a current diagnosis for this admission?: Yes Plan: ready for SNF (2) SANJUANITA (acute kidney injury) Is this a current diagnosis for this admission?: Yes (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 Is this a current diagnosis for this admission?: Yes (4) Right rib fracture Qualifiers: Encounter type: subsequent encounter Rib fracture type: single rib Fracture type: closed Fracture healing: with routine healing Qualified Code( s): S22.31XD - Fracture of one rib, right side, subsequent encounter for fracture with routine healing Is this a current diagnosis for this admission?: Yes (5) Dilutional hyponatremia Is this a current diagnosis for this admission?: Yes
[2017-04-23] MEDS: METOPROLOL SUCCINATE 50 MG TAB.SR.24H PO SCH (09:56)
[2017-04-23] MEDS: AMLODIPINE BESYLATE 10 MG TABLET PO SCH (09:57)
[2017-04-23] MEDS: HYDRALAZINE HCL 50 MG TABLET PO SCH ×2 (09:58→21:32)
[2017-04-23] MEDS: ENOXAPARIN SODIUM INJ 30 MG/0.3 ML DISP.SYRIN SUBCUT SCH (09:58)
[2017-04-23] MEDS: LACTULOSE SYRUP 20 GM/30 ML UDCUP PO SCH ×2 (09:59→18:24)
[2017-04-23] MEDS: LUBIPROSTONE 24 MCG CAPSULE PO SCH ×2 (09:59→18:24)
[2017-04-24 04:47] VITALS: BP 143/59
--- NOTE | 2017-04-24 06:53 | PDOC DISCHARGE SUMMARY ---
General - Admit/Disc Date/PCP Admission Date/Primary Care Provider: 04/16/17 16:29 SG CUEVAS MD Discharge Date: 04/24/17 - Discharge Diagnosis (1) Vascular dementia Is this a current diagnosis for this admission?: Yes (2) SANJUANITA (acute kidney injury) Is this a current diagnosis for this admission?: Yes (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 Is this a current diagnosis for this admission?: Yes (4) Right rib fracture Is this a current diagnosis for this admission?: Yes (5) Dilutional hyponatremia Is this a current diagnosis for this admission?: Yes - Additional Information Resuscitation Status: Full Code Discharge Diet: Cardiac Discharge Activity: Supervised Activity Home Medications: Atorvastatin Calcium [Lipitor 40 mg Tablet] 40 mg PO QHS 04/16/17 Hydralazine HCl 100 mg PO Q12 04/16/17 Amlodipine Besylate [Norvasc 10 mg Tablet] 10 mg PO DAILY tablet 04/22/17 Lubiprostone [Amitiza 24 Mcg Capsule] 24 mcg PO BID capsule 04/22/17 Metoprolol Succinate [Toprol Xl 50 mg Tab.sr] 50 mg PO DAILY tab.sr.24h History of Present Illness Patient complains of: syncope and inability to walk History of Present Illness: SG BARKER is a 86 year old male who said he fell against R ribs yesterday around 8am. Neighbor spoke with him around 10am and saw him slump over for 30min without tonus or clonus. EMS arrived at that time and spoke with him. He was incontinent of urine. ER amezcua revealed only small vessel disease and inccrease in creatinine from 1.7 in august to 2.[address] chest basal atalectasis. In office today he could not stant without 2 assistants or R dorsiflex or flex hips. I was concerned he will no longer be able to live alone. Back in ER cr1.9. 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 In june MMSE was 23. Mobility was a bigger issue. R dorsiflexion was 4.8of5. Hospital Course Hospital Course: Urine grew 20k proteus. Blood cultures were negative. He had a few days of cetri. With IVF creatinine fell from 2.4 to 2. BUN fell from 43 to 33 and climbed to 38. With PT he walkered a few steps. 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 The weakness in R dorsiflexion went away. Physical Exam Vital Signs: Temp Pulse Resp BP Pulse Ox 97.6 F 59 L 16 143/59 H 98 04/24/17 03:45 04/24/17 03:45 04/24/17 03:45 04/24/17 03:45 04/24/17 03:45 Intake & Output 04/22/17 04/23/17 04/24/17 07:59 07:59 07:59 Intake Total 1280 240 Output Total 900 1070 Balance 380 -830 Weight 162 lb 0.636 oz 176 lb 9.444 oz General appearance: PRESENT: no acute distress Respiratory exam: PRESENT: clear to auscultation ferny Cardiovascular exam: PRESENT: systolic murmur. ABSENT: diastolic murmur, irregular rhythm Murmur grade: 1 GI/Abdominal exam: ABSENT: mass, organolmegaly, tenderness Extremities exam: ABSENT: pedal edema Skin exam: PRESENT: intact Results Laboratory Results: 04/22/17 08:03 Labs- Last Values WBC 4.8 10^3/uL (4.0-10.5) 04/16/17 14:12 RBC 4.04 10^6/uL (4.35-5.55) L 04/16/17 14:12 Hgb 11.6 g/dL (13.5-17.0) L 04/16/17 14:12 Hct 34.1 % (37.9-51.0) L 04/16/17 14:12 MCV 84 fl (80-97) 04/16/17 14:12 MCH 28.7 pg (27.0-33.4) 04/16/17 14:12 MCHC 34.1 g/dL (32.0-36.0) 04/16/17 14:12 RDW 16.2 % (11.5-14.0) H 04/16/17 14:12 Plt Count 188 10^3/uL (150-450) 04/16/17 14:12 Seg Neutrophils % 69.1 % (42-78) 04/16/17 14:12 Lymphocytes % 21.6 % (13-45) 04/16/17 14:12 Monocytes % 8.0 % (3-13) 04/16/17 14:12 Eosinophils % 0.8 % (0-6) 04/16/17 14:12 Basophils % 0.5 % (0-2) 04/16/17 14:12 Absolute Neutrophils 3.3 10^3/uL (1.7-8.2) 04/16/17 14:12 Absolute Lymphocytes 1.0 10^3/uL (0.5-4.7) 04/16/17 14:12 Absolute Monocytes 0.4 10^3/uL (0.1-1.4) 04/16/17 14:12 Absolute Eosinophils 0.0 10^3/uL (0.0-0.6) 04/16/17 14:12 Absolute Basophils 0.0 10^3/uL (0.0-0.2) 04/16/17 14:12 Sodium 138.1 mmol/L (137-145) 04/22/17 08:03 Potassium 4.6 mmol/L (3.6-5.0) 04/22/17 08:03 Chloride 106 mmol/L (98-107) 04/22/17 08:03 Carbon Dioxide 23 mmol/L (22-30) 04/22/17 08:03 Anion Gap 9 (5-19) 04/22/17 08:03 BUN 38 mg/dL (7-20) H 04/22/17 08:03 Creatinine 1.95 mg/dL (0.52-1.25) H 04/22/17 08:03 Est GFR ( Amer) 40 (>60) L 04/22/17 08:03 Est GFR (Non-Af Amer) 33 (>60) L 04/22/17 08:03 Glucose 101 mg/dL (75-110) 04/22/17 08:03 Calcium 8.3 mg/dL (8.4-10.2) L 04/22/17 08:03 Total Bilirubin 0.5 mg/dL (0.2-1.3) 04/16/17 14:12 Direct Bilirubin 0.5 mg/dL (0.0-0.4) H 04/16/17 14:12 Indirect Bilirubin Not Reportable 04/16/17 14:12 Neonat Total Bilirubin Not Reportable 04/16/17 14:12 AST 94 U/L (17-59) H 04/16/17 14:12 ALT 56 U/L (21-72) 04/16/17 14:12 Alkaline Phosphatase 70 U/L (38-126) 04/16/17 14:12 Total Protein 6.6 g/dL (6.3-8.2) 04/16/17 14:12 Albumin 3.8 g/dL (3.5-5.0) 04/16/17 14:12 Urine Color YELLOW 04/16/17 15:35 Urine Appearance SLIGHTLY-CLOUDY 04/16/17 15:35 Urine pH 5.0 (5.0-9.0) 04/16/17 15:35 Ur Specific [place] 1.014 04/16/17 15:35 Urine Protein >=500 mg/dL (NEGATIVE) H 04/16/17 15:35 Urine Glucose (UA) NEGATIVE mg/dL (NEGATIVE) 04/16/17 15:35 Urine Ketones NEGATIVE mg/dL (NEGATIVE) 04/16/17 15:35 Urine Blood SMALL (NEGATIVE) H 04/16/17 15:35 Urine Nitrite NEGATIVE (NEGATIVE) 04/16/17 15:35 Urine Bilirubin NEGATIVE (NEGATIVE) 04/16/17 15:35 Urine Urobilinogen NEGATIVE mg/dL (<2.0) 04/16/17 15:35 Ur Leukocyte Esterase LARGE (NEGATIVE) H 04/16/17 15:35 Urine WBC (Auto) 50 /HPF 04/16/17 15:35 Urine RBC (Auto) 3 /HPF 04/16/17 15:35 Urine WBC Clumps FEW /HPF 04/16/17 15:35 Squamous Epi Cells Auto <1 /HPF 04/16/17 15:35 Urine Mucus (Auto) RARE /LPF 04/16/17 15:35 Urine Ascorbic Acid NEGATIVE (NEGATIVE) 04/16/17 15:35 Qualifiers PATEINT BEING DISCHARGED WITH ANY OF THE FOLLOWING DIAGNOSIS?: No Plan Discharge Plan: I will follow at [facility].
[2017-04-24] MEDS: METOPROLOL SUCCINATE 50 MG TAB.SR.24H PO SCH (10:05)
[2017-04-24] MEDS: LUBIPROSTONE 24 MCG CAPSULE PO SCH (10:05)
[2017-04-24] MEDS: AMLODIPINE BESYLATE 10 MG TABLET PO SCH (10:06)
[2017-04-24] MEDS: HYDRALAZINE HCL 50 MG TABLET PO SCH (10:06)
[2017-04-24] MEDS: LACTULOSE SYRUP 20 GM/30 ML UDCUP PO SCH (10:06)
[2017-04-24] MEDS: ENOXAPARIN SODIUM INJ 30 MG/0.3 ML DISP.SYRIN SUBCUT SCH (10:06)
== END 2017-04-24 15:28 | DRG 683 ==
LOC: ER 13:10 → EH 15:38 → UNDOADMOB 15:40 → EH 15:40 → INTOOBSV 16:29 → OBSVTOIN 16:29 → EH 17:55 → 4S 17:55
PROVIDERS: ADMIT Family Medicine; ATTEND Family Medicine
PROC: 3E0234Z Introduction of Serum, Toxoid and Vaccine into Muscle, Percutaneous Approach (ICD-10-PCS; principal; 2017-04-24)
DX: N17.9 Acute kidney failure, unspecified (principal); I50.42 Chronic combined systolic (congestive) and diastolic (congestive) heart failure; E87.1 Hypo-osmolality and hyponatremia; I13.0 Hypertensive heart and chronic kidney disease with heart failure and stage 1 through stage 4 chronic kidney disease, or unspecified chronic kidney disease; S22.31XA Fracture of one rib, right side, initial encounter for closed fracture; F03.90 Unspecified dementia, unspecified severity, without behavioral disturbance, psychotic disturbance, mood disturbance, and anxiety; W19.XXXA Unspecified fall, initial encounter; F01.50 Vascular dementia, unspecified severity, without behavioral disturbance, psychotic disturbance, mood disturbance, and anxiety; Z60.2 Problems related to living alone; R26.0 Ataxic gait; I25.2 Old myocardial infarction; I25.10 Atherosclerotic heart disease of native coronary artery without angina pectoris; E78.5 Hyperlipidemia, unspecified; N18.9 Chronic kidney disease, unspecified; M19.90 Unspecified osteoarthritis, unspecified site; D63.1 Anemia in chronic kidney disease; Z23 Encounter for immunization; Z79.899 Other long term (current) drug therapy; Z87.891 Personal history of nicotine dependence; Z82.49 Family history of ischemic heart disease and other diseases of the circulatory system
CPT/HCPCS: 36415; 70450; 71250; 80048; 80053; 81001; 84484; 85025; 85610; 85730; 87040; 87086; 87088; 87186; 90686; 93005; 93010; 96360; 99285; G8978-GP; G8979-GP; G8987-GO; G8988-GO; G8999-GN; G9158-GN; G9186-GN; J0696; J1650; J7030

== ENCOUNTER 2018-12-18 12:54 | Inpatient (IN) | payer MEDICARE, MEDICAID ==
[2018-12-18 13:34] LABS: ABSOLUTE EOSINOPHILS # (AUTO) 0.1 10^3/uL (0.0-0.6); ABSOLUTE MONOCYTES (AUTO) 0.3 10^3/uL (0.1-1.4); BASOPHILS % (AUTO) 0.5 % (0-2); EOSINOPHILS % (AUTO) 1.9 % (0-6); TOTAL CELLS COUNTED % (AUTO) 100 %
[2018-12-18 13:43] LABS: ABSOLUTE LYMPHOCYTES (AUTO) 0.8 10^3/uL (0.5-4.7); ABSOLUTE NEUT (AUTO) 5.4 10^3/uL (1.7-8.2); HEMATOCRIT 34.9 % (37.9-51.0); HEMOGLOBIN 11.7 g/dL (13.5-17.0); INTERNATIONAL RATION (INR) 1.17; MEAN CORPUSCULAR HEMOGLOBIN 27.7 pg (27.0-33.4); MEAN CORPUSCULAR HGB CONC 33.4 g/dL (32.0-36.0); MEAN CORPUSCULAR VOLUME 83 fl (80-97); MONOCYTES % (AUTO) 4.5 % (3-13); PLATELET COUNT 318 10^3/uL (150-450); RED BLOOD COUNT 4.21 10^6/uL (4.35-5.55); RED CELL DISTRIBUTION WIDTH 16.5 % (11.5-14.0); SEGMENTED NEUTROPHILS % (AUTO) 81.1 % (42-78); WHITE BLOOD COUNT 6.6 10^3/uL (4.0-10.5)
[2018-12-18 13:56] LABS: ALANINE AMINOTRANSFERASE 30 U/L (21-72); ALBUMIN 3.3 g/dL (3.5-5.0); ALKALINE PHOSPHATASE 102 U/L (38-126); ANION GAP 15 (5-19); ASPARTATE AMINO TRANSFERASE 41 U/L (17-59); BILIRUBIN,DIRECT 0.6 mg/dL (0.0-0.4); BILIRUBIN,TOTAL 0.7 mg/dL (0.2-1.3); BLOOD UREA NITROGEN 47 mg/dL (7-20); CALCIUM 8.2 mg/dL (8.4-10.2); CARBON DIOXIDE 18 mmol/L (22-30); CHLORIDE 94 mmol/L (98-107); GLUCOSE 151 mg/dL (75-110); POTASSIUM 5.1 mmol/L (3.6-5.0); TOTAL PROTEIN 6.1 g/dL (6.3-8.2)
[2018-12-18 14:02] LABS: VENOUS BLOOD BASE EXCESS -9.3 mmol/L; VENOUS BLOOD HCO3 16.4 mmol/L (20-32); VENOUS BLOOD PCO2 35.4 mmHg (35-63); VENOUS BLOOD PH 7.29 (7.30-7.42)
[2018-12-18] MEDS ORDERED: NORMAL SALINE 500 ML IV ONE (14:16)
[2018-12-18] MEDS ORDERED: PIPERACILLIN/TAZOBACTAM 3.375 GM VIAL IV ONE (14:30)
[2018-12-18] MEDS ORDERED: VANCOMYCIN HCL INJ 1000 MG VIAL IV ONE (14:30)
[2018-12-18] MEDS ORDERED: NORMAL SALINE 1000 ML 1,000 ML IV ONE (14:31)
--- NOTE | 2018-12-18 14:32 | RADIOLOGY REPORT (SQ) ---
EXAM DESCRIPTION: CT HEAD WITHOUT COMPLETED DATE/TIME: 12/18/2018 2:19 pm REASON FOR STUDY: bed [address] pedraza r/o stroke COMPARISON: CT brain 04/15/2017 TECHNIQUE: Axial images acquired through the brain without intravenous contrast. Images reviewed wi th bone, brain and subdural windows. Additional sagittal and coronal reconstructions were generated. Images stored on PACS. All CT scanners at this facility use dose modulation, iterative reconstruction, and/or weight based d osing when appropriate to reduce radiation dose to as low as reasonably achievable (ALARA). [facility]: Dose Right [facility]: CareDose [facility]: Dose Right [facility]: Teradose 4D [facility]: [email or web address] RADIATION DOSE: CT Rad equipment meets quality standard of care and radiation dose reduction techniq ues were employed. CTDIvol: 23.1 mGy. DLP: 499 mGy-cm. mGy. LIMITATIONS: None. FINDINGS: VENTRICLES: Normal size and contour. CEREBRUM: No masses. No hemorrhage. No midline shift. No evidence for acute infarction. Extensive low attenuation in the hemispheric white matter from chronic small vessel disease CEREBELLUM: No masses. No hemorrhage. No alteration of density. No evidence for acute infarction. EXTRAAXIAL SPACES: No fluid collections. No masses. Prominent bifrontal extra-axial CSF spaces are stable compared to 2017. ORBITS AND GLOBE: No intra- or extraconal masses. Normal contour of globe without masses. CALVARIUM: No fracture. PARANASAL SINUSES: No fluid or mucosal thickening. SOFT TISSUES: No mass or hematoma. OTHER: Results called to Dr. Pedraza in the emergency room IMPRESSION: No acute findings. EVIDENCE OF ACUTE STROKE: NO. COMMENT: Quality ID # [id number]: Final reports with documentation of one or more dose reduction techniques (e.g., Automated exposure control, adjustment of the mA and/or kV according to patient size, use of iterative reconstruction technique) TECHNICAL DOCUMENTATION: JOB ID: [id number] [employer]- All Rights Reserved Reading location - IP/workstation name: [email or web address]
--- NOTE | 2018-12-18 14:37 | ER Document Report ---
ED General - General Chief Complaint: General Weakness Stated Complaint: WEAKNESS Time Seen by Provider: 12/18/18 14:14 Mode of Arrival: Medic Information source: Patient, Emergency Med Personnel, [facility] Records, Outside [facility] Records Notes: 88-year-old male with Alzheimer's dementia, heart failure, chronic kidney disease, hyperlipidemia, hyponatremia, depression, hypertension, muscle weakness who is wheelchair-bound presents via EMS from [facility] with concern for increasing weakness and slurred speech that was noted at 9 AM. Upon arrival patient has no physical complaints and denies any headache, nausea, vomiting, chest pain, shortness of breath, abdominal pain, diarrhea, difficulty with urination. Patient states that he has been eating and drinking normally. He denies any recent falls. He has recently developed a fungal rash for which he is receiving fluconazole. TRAVEL OUTSIDE OF THE [place] IN LAST 30 DAYS: No - HPI Onset: This morning Onset/Duration: Sudden Quality of pain: No pain Severity: None Pain Level: Denies Associated symptoms: Weakness. denies: Chest pain, Productive cough, Diarrhea, Fever, Headache, Nausea, Vomiting, Shortness of breath, Sweating Exacerbated by: Denies Relieved by: Denies Similar symptoms previously: Yes Recently seen / treated by doctor: Yes - Related Data Allergies/Adverse Reactions: No Known Allergies Allergy (Verified 04/16/17 13:20) Past Medical History - General Information source: Patient - Social History Smoking Status: Former Smoker Frequency of alcohol use: None Drug Abuse: None Lives with: [employer] Family History: Hypertension Patient has suicidal ideation: No Patient has homicidal ideation: No - Past Medical History Cardiac Medical History: Reports: Hx Congestive Heart Failure, Hx Coronary Artery Disease, Hx Heart Attack, Hx Hypercholesterolemia, Hx Hypertension Neurological Medical History: Reports: Hx Cerebrovascular Accident Renal/ Medical History: Denies: Hx Peritoneal Dialysis Musculoskeletal Medical History: Reports Hx Arthritis, Reports Hx Gout Psychiatric Medical History: Reports: Hx Dementia Denies: Hx Depression Past Surgical History: Reports: Hx Orthopedic Surgery - cervical laminectomy fusion - Immunizations Hx Diphtheria, Pertussis, Tetanus Vaccination: No Review of Systems - Review of Systems Constitutional: denies: Fever, Recent illness EENT: denies: Blurred vision, Difficulty swallowing Cardiovascular: Edema. denies: Chest pain, Palpitations, Dizziness Respiratory: denies: Cough, Short of breath Gastrointestinal: denies: Abdominal pain, Nausea, Vomiting, Poor appetite, Poor fluid intake Genitourinary: denies: Dysuria Musculoskeletal: Leg swelling. denies: Back pain Skin: Change in color, Rash Hematologic/Lymphatic: No symptoms reported Neurological/Psychological: Dementia -: Yes All other systems reviewed and negative Physical Exam - Vital signs Vitals: Resp Pulse Ox 19 98 12/18/18 13:34 12/18/18 13:34 - Notes Notes: PHYSICAL EXAMINATION: GENERAL: Well-appearing, well-nourished and in no acute distress. HEAD: Atraumatic, normocephalic. EYES: Pupils equal round and reactive to light, extraocular movements intact, sclera anicteric, conjunctiva are normal. ENT: Nares patent, oropharynx clear without exudates. Moist mucous membranes. NECK: Normal range of motion, supple without lymphadenopathy LUNGS: Breath sounds clear to auscultation bilaterally and equal. No wheezes rales or rhonchi. HEART: Regular rate and rhythm without murmurs ABDOMEN: Soft, nontender, nondistended abdomen. No guarding, no rebound. No masses appreciated. Musculoskeletal: Normal range of motion, bilateral 2+ pitting edema lower extremities, no cyanosis. NEUROLOGICAL: Cranial nerves grossly intact. Normal speech, wheelchair-bound, normal sensory, limited range of motion of the lower extremities. PSYCH: Normal mood, normal affect. SKIN: Diffuse erythema, skin tenting, sacral discoloration. No sloughing of the skin. No facial involvement. Course - Re-evaluation Re-evalutation: Temp Pulse Resp BP Pulse Ox 23 H 102/44 L 98 12/18/18 13:43 12/18/18 13:43 12/18/18 13:48 Laboratory 12/18/18 12/18/18 12/18/18 12:40 12:40 12:40 WBC 6.6 RBC 4.21 L Hgb 11.7 L Hct 34.9 L MCV 83 MCH 27.7 MCHC 33.4 RDW 16.5 H Plt Count 318 Seg Neutrophils % 81.1 H Lymphocytes % 12.0 L Monocytes % 4.5 Eosinophils % 1.9 Basophils % 0.5 Absolute Neutrophils 5.4 Absolute Lymphocytes 0.8 Absolute Monocytes 0.3 Absolute Eosinophils 0.1 Absolute Basophils 0.0 PT 15.0 INR 1.17 VBG pH VBG pCO2 VBG HCO3 VBG Base Excess Sodium 127.1 L Potassium 5.1 H Chloride 94 L Carbon Dioxide 18 L Anion Gap 15 BUN 47 H Creatinine 3.06 H Est GFR ( Amer) 23 L Est GFR (Non-Af Amer) 19 L Glucose 151 H POC Glucose Lactic Acid Calcium 8.2 L Total Bilirubin 0.7 Direct Bilirubin 0.6 H Neonat Total Bilirubin Not Reportable Neonat Direct Bilirubin Not Reportable Neonat Indirect Bili Not Reportable AST 41 ALT 30 Alkaline Phosphatase 102 Troponin I Total Protein 6.1 L Albumin 3.3 L 12/18/18 12/18/18 12/18/18 12:40 13:33 13:45 WBC RBC Hgb Hct MCV MCH MCHC RDW Plt Count Seg Neutrophils % Lymphocytes % Monocytes % Eosinophils % Basophils % Absolute Neutrophils Absolute Lymphocytes Absolute Monocytes Absolute Eosinophils Absolute Basophils PT INR VBG pH VBG pCO2 VBG HCO3 VBG Base Excess Sodium Potassium Chloride Carbon Dioxide Anion Gap BUN Creatinine Est GFR ( Amer) Est GFR (Non-Af Amer) Glucose POC Glucose 153 H Lactic Acid 4.7 H Calcium Total Bilirubin Direct Bilirubin Neonat Total Bilirubin Neonat Direct Bilirubin Neonat Indirect Bili AST ALT Alkaline Phosphatase Troponin I < 0.012 Total Protein Albumin 12/18/18 13:45 WBC RBC Hgb Hct MCV MCH MCHC RDW Plt Count Seg Neutrophils % Lymphocytes % Monocytes % Eosinophils % Basophils % Absolute Neutrophils Absolute Lymphocytes Absolute Monocytes Absolute Eosinophils Absolute Basophils PT INR VBG pH 7.29 L VBG pCO2 35.4 VBG HCO3 16.4 L VBG Base Excess -9.3 Sodium Potassium Chloride Carbon Dioxide Anion Gap BUN Creatinine Est GFR ( Amer) Est GFR (Non-Af Amer) Glucose POC Glucose Lactic Acid Calcium Total Bilirubin Direct Bilirubin Neonat Total Bilirubin Neonat Direct Bilirubin Neonat Indirect Bili AST ALT Alkaline Phosphatase Troponin I Total Protein Albumin Head CT 12/18/18 00:00 IMPRESSION: No acute findings. EVIDENCE OF ACUTE STROKE: NO. Temp Pulse Resp BP Pulse Ox 97.3 F 59 L 16 93/50 L 100 12/18/18 21:09 12/18/18 21:09 12/18/18 21:09 12/18/18 21:09 12/18/18 21:09 12/18/18 14:37 88-year-old male presents via EMS from [facility] facility with concern for increased weakness and slurred speech. Upon arrival patient is hypotensive but afebrile and not hypoxic. He is alert, awake and oriented x3. Patient does not appear toxic but does appear dehydrated. Exam is significant for diffuse fungal rash, lower extremity edema. No facial involvement of the rash. No skin sloughing. Patient has difficulty moving his lower extremities bilaterally which he states is not new. Patient is wheelchair-bound that baseline. IV fluids, Zosyn, Vanco, Diflucan administered. 12/19/18 01:01 Dr. Frost has accepted the patient to telemetry. 12/19/18 01:05 - Vital Signs Vital signs: Temp Pulse Resp BP Pulse Ox 97.3 F 59 L 16 93/50 L 100 12/18/18 21:09 12/18/18 21:09 12/18/18 21:09 12/18/18 21:09 12/18/18 21:09 - Laboratory Result Diagrams: 12/18/18 12:40 12/18/18 12:40 Laboratory results interpreted by me: 12/18/18 12/18/18 12/18/18 12:40 12:40 13:33 RBC 4.21 L Hgb 11.7 L Hct 34.9 L RDW 16.5 H Seg Neutrophils % 81.1 H Lymphocytes % 12.0 L VBG pH VBG HCO3 Sodium 127.1 L Potassium 5.1 H Chloride 94 L Carbon Dioxide 18 L BUN 47 H Creatinine 3.06 H Est GFR ( Amer) 23 L Est GFR (Non-Af Amer) 19 L Glucose 151 H POC Glucose 153 H Lactic Acid Calcium 8.2 L Direct Bilirubin 0.6 H Total Protein 6.1 L Albumin 3.3 L 12/18/18 12/18/18 13:45 13:45 RBC Hgb Hct RDW Seg Neutrophils % Lymphocytes % VBG pH 7.29 L VBG HCO3 16.4 L Sodium Potassium Chloride Carbon Dioxide BUN Creatinine Est GFR ( Amer) Est GFR (Non-Af Amer) Glucose POC Glucose Lactic Acid 4.7 H Calcium Direct Bilirubin Total Protein Albumin - Diagnostic Test Radiology reviewed: Image reviewed, Reports reviewed - EKG Interpretation by Me EKG shows normal: Sinus rhythm Rate: Normal Rhythm: NSR When compared to previous EKG there are: No significant change Critical Care Note - Critical Care Note Total time excluding time spent on procedures (mins): 35 - Minutes of critical care time spent in direct contact evaluating and reevaluating the patient, treating symptoms, reviewing labs and studies and speaking with family and consultants excluding any procedures Discharge - Discharge Clinical Impression: Lactic acidosis, Dehydration, Hyponatremia, Desquamative dermatitis Hypotension Qualifiers: Hypotension type: unspecified hypotension type Qualified Code(s): I95.9 - Hypotension, unspecified CKD (chronic kidney disease) Qualifiers: Chronic kidney disease stage: unspecified stage Qualified Code(s): N18.9 - Chronic kidney disease, unspecified Dementia Qualifiers: Dementia type: Alzheimer's disease Alzheimer's disease onset: unspecified onset Dementia behavioral disturbance: without behavioral disturbance Qualified Code(s): G30.9 - Alzheimer's disease, unspecified Congestive heart failure Qualifiers: Qualified Code(s): I50.9 - Heart failure, unspecified Condition: Fair Disposition: ADMITTED INPATIENT Admitting Provider: [facility] Unit Admitted: Telemetry
[2018-12-18] MEDS ORDERED: DEXTROSE 5%-1/2 NORMAL SALINE 1,000 ML IV PRN (16:13)
--- NOTE | 2018-12-18 16:20 | EKG REPORT ---
SEVERITY:- ABNORMAL ECG - SINUS RHYTHM 55-66 NONSPECIFIC IVCD WITH LAD : Confirmed by: Anders Khan MD 18-Dec-2018 16:19:25
[2018-12-18] MEDS: FLUCONAZOLE 200 MG/NS RTU 200 MG/100 ML RTUPB IV SCH (16:22)
--- NOTE | 2018-12-18 17:56 | PDOC H&P ---
History of Present Illness Admission Date/PCP: SG CUEVAS MD Patient complains of: Nurse: slurred speech L chisel grinder mildly weak History of Present Illness: SG BARKER is a 88 year old male from [place]. After sitting in sun all morning, nurse noted slurred speech dysphagia mild L chisel grinder weakness. 1998 dementia & chronic obstructive uropathy. 2001 lacunae. 2003 R cva with L circumduction. 2017 L tia with slurred speech R facial droop 15min. MRI small vessel disease aspirin. 2jul nurses found desquamating perineal and sacral rash. Fluconazole has not helped. Past Medical History Cardiac Medical History: Reports: Congestive Heart Failure, Coronary Artery Disease, Myocardial Infarction, Hyperlipidema, Hypertension EENT Medical History: Reports: Nose - allergic rhinitis Neurological Medical History: Reports: Ischemic CVA Endocrine Medical History: Denies: Diabetes Mellitus Type 2 Renal/ Medical History: Reports: Chronic Kidney Disease Malignancy Medical History: Reports: None GI Medical History: Reports: Peptic Ulcer Disease Musculoskeltal Medical History: Reports: Arthritis, Gout Skin Medical History: Reports: Other - last month desquamating perineal rash spreading to torso and knees Psychiatric Medical History: Reports: Dementia Denies: Depression Traumatic Medical History: Reports: None Hematology: Reports: Anemia - renal Infectious Medical History: Reports: None Past Surgical History Past Surgical History: Reports: Orthopedic Surgery - cervical laminectomy fusion, Other - 1999 perioneal abscess Social History Information Source: [facility] Records Lives with: [facility] Smoking Status: Former Smoker Number of Years Smokin Last Time Smoked: 1980 Frequency of Alcohol Use: None Hx Recreational Drug Use: No Drugs: None Hx Prescription Drug Abuse: No - Advance Directive Resuscitation Status: Full Code Family History Family History: Hypertension Parental Family History Reviewed: Yes Children Family History Reviewed: Yes Sibling(s) Family History Reviewed.: Yes Medication/Allergy Home Medications: Hydralazine HCl 100 mg PO Q12 04/16/17 Amlodipine Besylate [Norvasc 10 mg Tablet] 10 mg PO DAILY tablet 04/22/17 Metoprolol Succinate [Toprol Xl 50 mg Tab.sr] 50 mg PO DAILY tab.sr.24h 04/22/17 Furosemide [Lasix 20 mg Tablet] 20 mg PO DAILY 12/18/18 Linaclotide [Linzess 145 Mcg Capsule] 145 mcg PO DAILY 12/18/18 Allergies/Adverse Reactions: No Known Allergies Allergy (Verified 04/16/17 13:20) Review of Systems Constitutional: PRESENT: weight loss. ABSENT: fever(s), headache(s) Nose, Mouth, and Throat: ABSENT: sore throat Cardiovascular: ABSENT: chest pain, dyspnea on exertion, orthropnea Respiratory: ABSENT: cough Gastrointestinal: ABSENT: abdominal pain, constipation, diarrhea, hematochezia, vomiting Genitourinary: ABSENT: dysuria, hematuria Integumentary: PRESENT: erythema, rash Neurological: PRESENT: abnormal speech, memory loss Physical Exam Vital Signs: Temp Pulse Resp BP Pulse Ox 23 H 102/44 L 98 12/18/18 13:43 12/18/18 13:43 12/18/18 13:48 Intake & Output 12/17/18 12/18/18 12/19/18 07:59 07:59 07:59 Weight 208 lb General appearance: PRESENT: no acute distress Eye exam: ABSENT: conjunctival injection, scleral icterus Mouth exam: PRESENT: tongue midline. ABSENT: moist, neck supple Neck exam: ABSENT: lymphadenopathy, tenderness, thyromegaly, tracheal deviation Respiratory exam: ABSENT: clear to auscultation ferny Cardiovascular exam: PRESENT: irregular rhythm. ABSENT: diastolic murmur, systolic murmur GI/Abdominal exam: ABSENT: mass, organolmegaly, tenderness Extremities exam: PRESENT: pedal edema - R3+ L2+ Neurological exam: PRESENT: alert, CN II-XII grossly intact, motor sensory defi cit - R dorsiflexion 4.7 L=5 Wheel chair bound.. ABSENT: aphasic Psychiatric exam: PRESENT: appropriate affect Skin exam: PRESENT: erythema, rash - papular scaly now diffuse x face Results Laboratory Results: Abnormal - 24 hr 12/18/18 12/18/18 12/18/18 12:40 12:40 13:33 RBC 4.21 L Hgb 11.7 L Hct 34.9 L RDW 16.5 H Seg Neutrophils % 81.1 H Lymphocytes % 12.0 L VBG pH VBG HCO3 Sodium 127.1 L Potassium 5.1 H Chloride 94 L Carbon Dioxide 18 L BUN 47 H Creatinine 3.06 H Est GFR ( Amer) 23 L Est GFR (Non-Af Amer) 19 L Glucose 151 H POC Glucose 153 H Lactic Acid Calcium 8.2 L Direct Bilirubin 0.6 H Total Protein 6.1 L Albumin 3.3 L 12/18/18 12/18/18 13:45 13:45 RBC Hgb Hct RDW Seg Neutrophils % Lymphocytes % VBG pH 7.29 L VBG HCO3 16.4 L Sodium Potassium Chloride Carbon Dioxide BUN Creatinine Est GFR ( Amer) Est GFR (Non-Af Amer) Glucose POC Glucose Lactic Acid 4.7 H Calcium Direct Bilirubin Total Protein Albumin Impressions: Head CT 12/18/18 00:00 IMPRESSION: No acute findings. EVIDENCE OF ACUTE STROKE: NO. Assessment & Plan - Diagnosis (1) Hyponatremia Is this a current diagnosis for this admission?: Yes Plan: d5half (2) Lactic acidosis Is this a current diagnosis for this admission?: Yes Plan: blood cultures zosyn (3) Acute on chronic renal failure Qualifiers: Acute renal failure type: with acute renal cortical necrosis Chronic kidney disease stage: stage 4 (severe) Qualified Code(s): N17.1 - Acute kidney failure with acute cortical necrosis; N18.4 - Chronic kidney disease, stage 4 (severe) Is this a current diagnosis for this admission?: Yes Plan: stop furosemide. Started as obstructive from bladder thickening. 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 Stop. (7) Other hydronephrosis Is this a current diagnosis for this admission?: Yes (9) Cerebral infarction due to thrombosis of right middle cerebral artery Is this a current diagnosis for this admission?: Yes - Inpatient Certification Based on my medical assessment, after consideration of the patient's comorbidities, presenting symptoms, or acuity I expect that the services needed warrant INPATIENT care.: Yes I certify that my determination is in accordance with my understanding of Medicare's requirements for reasonable and necessary INPATIENT services [42 CFR 412.3e].: Yes Medical Necessity: Failure to Improve With Outpatient Therapy, Significant Comorbidiites Make Outpatient Treatment Too Risky, Need Close Monitoring Due to Risk of Patient Decompensation, Need For IV Fluids, Need For Continuous Telemetry Monitoring, Need for IV Antibiotics, Risk of Complication if Not Cared For in Hospital, Risk of Diagnosis Which Will Require Inpatient Eval/Care/Monitoring
[2018-12-18] MEDS: ENOXAPARIN SODIUM INJ 30 MG/0.3 ML DISP.SYRIN SUBCUT SCH (21:49)
[2018-12-18] MEDS: PIPERACILLIN SODIUM/TAZOBACTAM 2.25 GM in NORMAL SALINE 50 ML IV SCH (21:50)
[2018-12-19] MEDS: PIPERACILLIN SODIUM/TAZOBACTAM 2.25 GM in NORMAL SALINE 50 ML IV SCH ×4 (04:14→21:58)
[2018-12-19 05:25] LABS: ANION GAP 9 (5-19); BLOOD UREA NITROGEN 44 mg/dL (7-20); CALCIUM 7.5 mg/dL (8.4-10.2); CARBON DIOXIDE 20 mmol/L (22-30); CHLORIDE 98 mmol/L (98-107); GLUCOSE 116 mg/dL (75-110); POTASSIUM 4.7 mmol/L (3.6-5.0)
[2018-12-19 06:20] LABS: APPEARANCE,URINE CLEAR; BILIRUBIN,URINE NEGATIVE (NEGATIVE); COLOR,URINE YELLOW; GLUCOSE, URINE NEGATIVE (NEGATIVE); KETONES,URINE NEGATIVE (NEGATIVE); LEUKOCYTE ESTERASE,URINE TRACE (NEGATIVE); NITRITE,URINE NEGATIVE (NEGATIVE); PROTEIN,URINE NEGATIVE (NEGATIVE); URINE SPECIFIC GRAVITY 1.011; UROBILINOGEN,URINE NEGATIVE mg/dL (<2.0)
[2018-12-19] MEDS ORDERED: NORMAL SALINE 1000 ML 1,000 ML IV PRN (06:50)
--- NOTE | 2018-12-19 08:09 | PDOC PROGRESS REPORT ---
Subjective Progress Note for:: 12/19/18 Subjective:: better Reason For Visit: HYPOTENSION LACTIC ACIDOSIS,CKD (CHRONIC KIDNEY Physical Exam Vital Signs: Temp Pulse Resp BP Pulse Ox 98.6 F 60 18 98/38 L 100 12/19/18 04:00 12/19/18 07:00 12/19/18 04:00 12/19/18 04:00 12/19/18 04:00 Intake & Output 12/18/18 12/19/18 12/20/18 07:59 07:59 07:59 Intake Total 2134 Output Total 490 Balance 1644 Weight 198 lb 13.711 oz General appearance: PRESENT: no acute distress Respiratory exam: PRESENT: clear to auscultation ferny Cardiovascular exam: PRESENT: irregular rhythm. ABSENT: diastolic murmur, systolic murmur GI/Abdominal exam: ABSENT: mass, organolmegaly, tenderness Extremities exam: PRESENT: pedal edema Neurological exam: ABSENT: oriented to situation Psychiatric exam: PRESENT: appropriate affect Results Laboratory Results: Abnormal - 24 hr 12/18/18 12/18/18 12/18/18 12:40 12:40 13:33 RBC 4.21 L Hgb 11.7 L Hct 34.9 L RDW 16.5 H Seg Neutrophils % 81.1 H Lymphocytes % 12.0 L VBG pH VBG HCO3 Sodium 127.1 L Potassium 5.1 H Chloride 94 L Carbon Dioxide 18 L BUN 47 H Creatinine 3.06 H Est GFR ( Amer) 23 L Est GFR (Non-Af Amer) 19 L Glucose 151 H POC Glucose 153 H Lactic Acid Calcium 8.2 L Direct Bilirubin 0.6 H Total Protein 6.1 L Albumin 3.3 L Ur Leukocyte Esterase 12/18/18 12/18/18 12/19/18 13:45 13:45 04:35 RBC Hgb Hct RDW Seg Neutrophils % Lymphocytes % VBG pH 7.29 L VBG HCO3 16.4 L Sodium 126.9 L Potassium Chloride Carbon Dioxide 20 L BUN 44 H Creatinine 2.92 H Est GFR ( Amer) 25 L Est GFR (Non-Af Amer) 20 L Glucose 116 H POC Glucose Lactic Acid 4.7 H Calcium 7.5 L Direct Bilirubin Total Protein Albumin Ur Leukocyte Esterase Impressions: Head CT 12/18/18 00:00 IMPRESSION: No acute findings. EVIDENCE OF ACUTE STROKE: NO. Assessment & Plan - Diagnosis (1) Hyponatremia Is this a current diagnosis for this admission?: Yes Plan: no better on d5half. BP 90s. NS250 (2) Lactic acidosis Is this a current diagnosis for this admission?: Yes (3) Acute on chronic renal failure Qualifiers: Acute renal failure type: with acute renal cortical necrosis Chronic kidney disease stage: stage 4 (severe) Qualified Code(s): N17.1 - Acute kidney failure with acute cortical necrosis; N18.4 - Chronic kidney disease, stage 4 (severe) Is this a current diagnosis for this admission?: Yes Plan: bun falling (4) Chronic combined systolic and diastolic heart failure Is this a current diagnosis for this admission?: Yes Plan: no rales (5) Alzheimer's disease with late onset Qualifiers: Dementia behavioral disturbance: without behavioral disturbance Qualified Code(s): G30.1 - Alzheimer's disease with late onset; F02.80 - Dementia in other diseases classified elsewhere without behavioral disturbance Is this a current diagnosis for this admission?: Yes (6) Desquamative dermatitis Is this a current diagnosis for this admission?: Yes (7) Other hydronephrosis Is this a current diagnosis for this admission?: Yes (9) Cerebral infarction due to thrombosis of right middle cerebral artery Is this a current diagnosis for this admission?: Yes (10) Paroxysmal atrial fibrillation Is this a current diagnosis for this admission?: Yes Plan: doubt anticoagulation at this age is useful - Inpatient Certification Medical Necessity: Failure to Improve With Outpatient Therapy, Significant Comorbidiites Make Outpatient Treatment Too Risky, Need Close Monitoring Due to Risk of Patient Decompensation, Need For IV Fluids, Need For Continuous Telemetry Monitoring, Need for IV Antibiotics, Risk of Complication if Not Cared For in Hospital, Risk of Diagnosis Which Will Require Inpatient Eval/Care/Monitoring
[2018-12-19] MEDS: FLUCONAZOLE 200 MG/NS RTU 200 MG/100 ML RTUPB IV SCH (09:22)
[2018-12-19] MEDS: ENOXAPARIN SODIUM INJ 30 MG/0.3 ML DISP.SYRIN SUBCUT SCH (09:23)
--- NOTE | 2018-12-19 18:02 | RADIOLOGY REPORT (SQ) ---
EXAM DESCRIPTION: CHEST SINGLE VIEW COMPLETED DATE/TIME: 12/18/2018 2:40 pm REASON FOR STUDY: bed 11 r/ sepsis protocol COMPARISON: None. EXAM PARAMETERS: NUMBER OF VIEWS: One view. TECHNIQUE: Single frontal radiographic view of the chest acquired. RADIATION DOSE: NA LIMITATIONS: None. FINDINGS: LUNGS AND PLEURA: Few chronic markings right base adjacent to the elevated hemidiaphragm. MEDIASTINUM AND HILAR STRUCTURES: No masses. Contour normal. HEART AND VASCULAR STRUCTURES: Heart normal in size. Normal vasculature. BONES: No acute findings. HARDWARE: None in the chest. OTHER: No other significant finding. IMPRESSION: NO ACUTE RADIOGRAPHIC FINDING IN THE CHEST. TECHNICAL DOCUMENTATION: JOB ID: [id number] 2010 [employer]- All Rights Reserved Reading location - IP/workstation name: [email or web address]
[2018-12-20] MEDS: PIPERACILLIN SODIUM/TAZOBACTAM 2.25 GM in NORMAL SALINE 50 ML IV SCH ×4 (02:48→21:04)
[2018-12-20 05:44] LABS: ANION GAP 9 (5-19); BLOOD UREA NITROGEN 39 mg/dL (7-20); CALCIUM 7.6 mg/dL (8.4-10.2); CARBON DIOXIDE 19 mmol/L (22-30); CHLORIDE 104 mmol/L (98-107); GLUCOSE 93 mg/dL (75-110); POTASSIUM 4.4 mmol/L (3.6-5.0)
--- NOTE | 2018-12-20 08:14 | PDOC PROGRESS REPORT ---
Subjective Progress Note for:: 12/20/18 Subjective:: insomnia less itch Reason For Visit: LACTIC ACIDOSIS Physical Exam Vital Signs: Temp Pulse Resp BP Pulse Ox 97.9 F 67 19 114/44 L 98 12/20/18 04:56 12/20/18 07:00 12/20/18 04:56 12/20/18 04:56 12/20/18 04:56 Intake & Output 12/19/18 12/20/18 12/21/18 07:59 07:59 07:59 Intake Total 2134 1410 Output Total 490 540 Balance 1644 870 Weight 198 lb 13.711 oz 198 lb 13.711 oz General appearance: PRESENT: no acute distress Respiratory exam: PRESENT: clear to auscultation ferny Cardiovascular exam: ABSENT: diastolic murmur, irregular rhythm, systolic murmur GI/Abdominal exam: ABSENT: mass, organolmegaly, tenderness Extremities exam: PRESENT: pedal edema Neurological exam: ABSENT: oriented to situation Psychiatric exam: PRESENT: appropriate affect Results Laboratory Results: 12/18/18 12:40 12/20/18 04:49 12/20/18 04:49 Sodium 131.9 L Potassium 4.4 Chloride 104 Carbon Dioxide 19 L Anion Gap 9 BUN 39 H Creatinine 2.49 H Est GFR ( Amer) 30 L Est GFR (Non-Af Amer) 25 L Glucose 93 Calcium 7.6 L Impressions: Head CT 12/18/18 00:00 IMPRESSION: No acute findings. EVIDENCE OF ACUTE STROKE: NO. Chest X-Ray 12/18/18 12:57 IMPRESSION: NO ACUTE RADIOGRAPHIC FINDING IN THE CHEST. Assessment & Plan - Diagnosis (1) Hyponatremia Is this a current diagnosis for this admission?: Yes Plan: improving since NS (2) Lactic acidosis Is this a current diagnosis for this admission?: Yes Plan: repeat lactate (3) Acute on chronic renal failure Qualifiers: Acute renal failure type: with acute renal cortical necrosis Chronic kidney disease stage: stage 4 (severe) Qualified Code(s): N17.1 - Acute kidney failure with acute cortical necrosis; N18.4 - Chronic kidney disease, stage 4 (severe) Is this a current diagnosis for this admission?: Yes Plan: bun falling but edema limited fluids. Gave enough to support bp. 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 Less red off hydralazine. (7) Other hydronephrosis Is this a current diagnosis for this admission?: Yes (9) Cerebral infarction due to thrombosis of right middle cerebral artery Is this a current diagnosis for this admission?: Yes Plan: lots of small vessel disease (10) Paroxysmal atrial fibrillation Is this a current diagnosis for this admission?: Yes - Inpatient Certification Medical Necessity: Failure to Improve With Outpatient Therapy, Significant Comorbidiites Make Outpatient Treatment Too Risky, Need Close Monitoring Due to Risk of Patient Decompensation, Need For Continuous Telemetry Monitoring, Need for IV Antibiotics, Risk of Complication if Not Cared For in Hospital, Risk of Diagnosis Which Will Require Inpatient Eval/Care/Monitoring
[2018-12-20] MEDS: FLUCONAZOLE 200 MG/NS RTU 200 MG/100 ML RTUPB IV SCH (09:53)
[2018-12-20] MEDS: ENOXAPARIN SODIUM INJ 30 MG/0.3 ML DISP.SYRIN SUBCUT SCH (09:53)
[2018-12-20] MEDS ORDERED: HYDROXYZINE PAMOATE 25 MG CAPSULE PO ONE (20:00)
[2018-12-20] MEDS: HYDROXYZINE PAMOATE 25 MG CAPSULE PO SCH (23:03)
[2018-12-21] MEDS: PIPERACILLIN SODIUM/TAZOBACTAM 2.25 GM in NORMAL SALINE 50 ML IV SCH ×4 (03:44→21:23)
[2018-12-21] MEDS: HYDROXYZINE PAMOATE 25 MG CAPSULE PO SCH ×4 (05:30→23:50)
--- NOTE | 2018-12-21 06:45 | PDOC PROGRESS REPORT ---
Subjective Progress Note for:: 12/21/18 Subjective:: Itch. Choked on hydroxyzine last night. No dyspnea. Reason For Visit: LACTIC ACIDOSIS Physical Exam Vital Signs: Temp Pulse Resp BP Pulse Ox 98.4 F 67 18 149/56 H 98 12/21/18 04:39 12/21/18 06:22 12/21/18 04:39 12/21/18 04:39 12/21/18 04:39 Intake & Output 12/19/18 12/20/18 12/21/18 07:59 07:59 07:59 Intake Total 2134 1410 610 Output Total 446 015 4702 Balance 1644 870 -490 Weight 198 lb 13.711 oz 198 lb 13.711 oz 201 lb 4.513 oz General appearance: PRESENT: no acute distress Respiratory exam: PRESENT: clear to auscultation ferny Cardiovascular exam: ABSENT: diastolic murmur, irregular rhythm, systolic murmur GI/Abdominal exam: ABSENT: mass, organolmegaly, tenderness Extremities exam: PRESENT: pedal edema Neurological exam: ABSENT: oriented to situation Psychiatric exam: PRESENT: appropriate affect Skin exam: PRESENT: erythema - less Results Laboratory Results: 12/18/18 12:40 12/20/18 07:54 Lactic Acid 1.4 12/18/18 12:40 Troponin I < 0.012 Impressions: Head CT 12/18/18 00:00 IMPRESSION: No acute findings. EVIDENCE OF ACUTE STROKE: NO. Chest X-Ray 12/18/18 12:57 IMPRESSION: NO ACUTE RADIOGRAPHIC FINDING IN THE CHEST. Assessment & Plan - Diagnosis (1) Hyponatremia Is this a current diagnosis for this admission?: Yes Plan: improved (2) Lactic acidosis Is this a current diagnosis for this admission?: Yes Plan: gone (3) Acute on chronic renal failure Qualifiers: Acute renal failure type: with acute renal cortical necrosis Chronic kidney disease stage: stage 4 (severe) Qualified Code(s): N17.1 - Acute kidney failure with acute cortical necrosis; N18.4 - Chronic kidney disease, stage 4 (severe) Is this a current diagnosis for this admission?: Yes Plan: improved (4) Chronic combined systolic and diastolic heart failure Is this a current diagnosis for this admission?: Yes (5) Alzheimer's disease with late onset Qualifiers: Dementia behavioral disturbance: without behavioral disturbance Qualified Code(s): G30.1 - Alzheimer's disease with late onset; F02.80 - Dementia in other diseases classified elsewhere without behavioral disturbance Is this a current diagnosis for this admission?: Yes (6) Desquamative dermatitis Is this a current diagnosis for this admission?: Yes Plan: improving (7) Other hydronephrosis Is this a current diagnosis for this admission?: Yes (9) Cerebral infarction due to thrombosis of right middle cerebral artery Is this a current diagnosis for this admission?: Yes (10) Paroxysmal atrial fibrillation Is this a current diagnosis for this admission?: Yes (11) Dysphagia Qualifiers: Dysphagia type: unspecified Qualified Code(s): R13.10 - Dysphagia, unspecified Is this a current diagnosis for this admission?: Yes Plan: consult ST - Inpatient Certification Medical Necessity: Failure to Improve With Outpatient Therapy, Significant Comorbidiites Make Outpatient Treatment Too Risky, Need Close Monitoring Due to Risk of Patient Decompensation, Need for IV Antibiotics, Risk of Complication if Not Cared For in Hospital, Risk of Diagnosis Which Will Require Inpatient Eval/Care/Monitoring
[2018-12-21 06:54] LABS: ANION GAP 9 (5-19); BLOOD UREA NITROGEN 32 mg/dL (7-20); CALCIUM 7.9 mg/dL (8.4-10.2); CARBON DIOXIDE 20 mmol/L (22-30); CHLORIDE 107 mmol/L (98-107); GLUCOSE 95 mg/dL (75-110); POTASSIUM 4.2 mmol/L (3.6-5.0)
--- NOTE | 2018-12-21 08:38 | RADIOLOGY REPORT (SQ) ---
EXAM DESCRIPTION: CHEST SINGLE VIEW COMPLETED DATE/TIME: 12/21/2018 7:58 am REASON FOR STUDY: possible aspiration COMPARISON: 12/18/2018 and 06/13/2016. EXAM PARAMETERS: NUMBER OF VIEWS: One view. TECHNIQUE: Single frontal radiographic view of the chest acquired. RADIATION DOSE: NA LIMITATIONS: None. FINDINGS: LUNGS AND PLEURA: Chronic elevation of the right hemidiaphragm. No opacities, masses or p neumothorax. No pleural effusion. MEDIASTINUM AND HILAR STRUCTURES: No masses. Contour normal. HEART AND VASCULAR STRUCTURES: Heart normal in size. Normal vasculature. BONES: No acute findings. Degenerative changes in the spine and shoulders. HARDWARE: None in the chest. OTHER: No other significant finding. IMPRESSION: NO ACUTE RADIOGRAPHIC FINDING IN THE CHEST. TECHNICAL DOCUMENTATION: JOB ID: [id number] [employer]- All Rights Reserved Reading location - IP/workstation name: [email or web address]
[2018-12-21] MEDS: FLUCONAZOLE 200 MG/NS RTU 200 MG/100 ML RTUPB IV SCH (09:09)
[2018-12-21] MEDS: ENOXAPARIN SODIUM INJ 30 MG/0.3 ML DISP.SYRIN SUBCUT SCH (09:09)
[2018-12-22] MEDS: PIPERACILLIN SODIUM/TAZOBACTAM 2.25 GM in NORMAL SALINE 50 ML IV SCH ×4 (02:32→21:08)
[2018-12-22] MEDS: HYDROXYZINE PAMOATE 25 MG CAPSULE PO SCH ×4 (06:00→23:00)
--- NOTE | 2018-12-22 07:49 | PDOC PROGRESS REPORT ---
Subjective Progress Note for:: 12/22/18 Subjective:: hungry thirsty after NPO for choking. No ST eval yet. No dysuria Reason For Visit: LACTIC ACIDOSIS Physical Exam Vital Signs: Temp Pulse Resp BP Pulse Ox 98.6 F 88 18 103/44 L 98 12/21/18 23:36 12/21/18 23:36 12/21/18 23:36 12/21/18 23:36 12/21/18 23:36 Intake & Output 12/20/18 12/21/18 12/22/18 07:59 07:59 07:59 Intake Total 1410 660 300 Output Total 540 1100 800 Balance 870 -440 -500 Weight 198 lb 13.711 oz 201 lb 4.513 oz General appearance: PRESENT: no acute distress Respiratory exam: PRESENT: clear to auscultation ferny Cardiovascular exam: ABSENT: diastolic murmur, irregular rhythm, systolic murmur GI/Abdominal exam: ABSENT: mass, organolmegaly, tenderness Extremities exam: PRESENT: pedal edema Neurological exam: ABSENT: oriented to situation Psychiatric exam: PRESENT: appropriate affect Skin exam: PRESENT: other - diffuse icthiosis Results Laboratory Results: 12/18/18 12:40 12/21/18 05:47 12/19/18 06:05 Clean Catch Midstream Urine Culture - Final Pseudomonas Aeruginosa Providencia Stuartii 12/18/18 12:40 Troponin I < 0.012 Impressions: Head CT 12/18/18 00:00 IMPRESSION: No acute findings. EVIDENCE OF ACUTE STROKE: NO. Chest X-Ray 12/21/18 07:00 IMPRESSION: NO ACUTE RADIOGRAPHIC FINDING IN THE CHEST. Assessment & Plan - Diagnosis (1) Dysphagia Qualifiers: Dysphagia type: unspecified Qualified Code(s): R13.10 - Dysphagia, unspecified Is this a current diagnosis for this admission?: Yes Plan: ST today (2) Acute cystitis without hematuria Is this a current diagnosis for this admission?: Yes Plan: 100k pseudomonas 50k providentia sensitive to zosyn. Continue (3) Lactic acidosis Is this a current diagnosis for this admission?: Yes Plan: suspect from uti (4) Acute on chronic renal failure Qualifiers: Acute renal failure type: with acute renal cortical necrosis Chronic kidney disease stage: stage 4 (severe) Qualified Code(s): N17.1 - Acute kidney failure with acute cortical necrosis; N18.4 - Chronic kidney disease, stage 4 (severe) Is this a current diagnosis for this admission?: Yes (5) Chronic combined systolic and diastolic heart failure Is this a current diagnosis for this admission?: Yes (6) Desquamative dermatitis Is this a current diagnosis for this admission?: Yes Plan: too wide spread for fungus. Stop fluconazole. (7) Other hydronephrosis Is this a current diagnosis for this admission?: Yes (9) Cerebral infarction due to thrombosis of right middle cerebral artery Is this a current diagnosis for this admission?: Yes (10) Paroxysmal atrial fibrillation Is this a current diagnosis for this admission?: Yes (11) Hyponatremia Is this a current diagnosis for this admission?: Yes (12) Alzheimer's disease with late onset Qualifiers: Dementia behavioral disturbance: without behavioral disturbance Qualified Code(s): G30.1 - Alzheimer's disease with late onset; F02.80 - Dementia in other diseases classified elsewhere without behavioral disturbance Is this a current diagnosis for this admission?: Yes - Inpatient Certification Medical Necessity: Failure to Improve With Outpatient Therapy, Significant Comorbidiites Make Outpatient Treatment Too Risky, Need Close Monitoring Due to Risk of Patient Decompensation, Need for IV Antibiotics, Risk of Complication if Not Cared For in Hospital, Risk of Diagnosis Which Will Require Inpatient Eval/Care/Monitoring
[2018-12-22] MEDS: ENOXAPARIN SODIUM INJ 30 MG/0.3 ML DISP.SYRIN SUBCUT SCH (09:29)
[2018-12-23] MEDS: PIPERACILLIN SODIUM/TAZOBACTAM 2.25 GM in NORMAL SALINE 50 ML IV SCH ×4 (02:44→21:12)
[2018-12-23] MEDS: HYDROXYZINE PAMOATE 25 MG CAPSULE PO SCH ×4 (05:10→23:19)
--- NOTE | 2018-12-23 07:41 | PDOC PROGRESS REPORT ---
Subjective Progress Note for:: 12/23/18 Subjective:: less itch Reason For Visit: LACTIC ACIDOSIS Physical Exam Vital Signs: Temp Pulse Resp BP Pulse Ox 97.8 F 83 17 129/53 H 96 12/22/18 15:06 12/22/18 15:06 12/22/18 15:06 12/22/18 15:06 12/22/18 15:06 Intake & Output 12/21/18 12/22/18 12/23/18 07:59 07:59 07:59 Intake Total 660 300 768 Output Total 1100 800 Balance -440 -500 768 Weight 201 lb 4.513 oz 192 lb 10.944 oz General appearance: PRESENT: no acute distress Respiratory exam: PRESENT: clear to auscultation ferny Cardiovascular exam: ABSENT: diastolic murmur, irregular rhythm, systolic murmur GI/Abdominal exam: ABSENT: mass, organolmegaly, tenderness Extremities exam: PRESENT: pedal edema Neurological exam: ABSENT: oriented to situation Psychiatric exam: PRESENT: appropriate affect Results Laboratory Results: 12/18/18 12:40 12/21/18 05:47 12/19/18 06:05 Clean Catch Midstream Urine Culture - Final Pseudomonas Aeruginosa Providencia Stuartii Impressions: Head CT 12/18/18 00:00 IMPRESSION: No acute findings. EVIDENCE OF ACUTE STROKE: NO. Chest X-Ray 12/21/18 07:00 IMPRESSION: NO ACUTE RADIOGRAPHIC FINDING IN THE CHEST. Assessment & Plan - Diagnosis (1) Dysphagia Qualifiers: Dysphagia type: unspecified Qualified Code(s): R13.10 - Dysphagia, unspecified Is this a current diagnosis for this admission?: Yes Plan: tolerating honey thickened. Speech consult pending. (2) Acute cystitis without hematuria Is this a current diagnosis for this admission?: Yes Plan: zosyn 2 more days (3) Lactic acidosis Is this a current diagnosis for this admission?: Yes (4) Acute on chronic renal failure Qualifiers: Acute renal failure type: with acute renal cortical necrosis Chronic kidney disease stage: stage 4 (severe) Qualified Code(s): N17.1 - Acute kidney failure with acute cortical necrosis; N18.4 - Chronic kidney disease, stage 4 (severe) Is this a current diagnosis for this admission?: Yes (5) Chronic combined systolic and diastolic heart failure Is this a current diagnosis for this admission?: Yes (6) Desquamative dermatitis Is this a current diagnosis for this admission?: Yes Plan: improving (7) Other hydronephrosis Is this a current diagnosis for this admission?: Yes (9) Cerebral infarction due to thrombosis of right middle cerebral artery Is this a current diagnosis for this admission?: Yes (10) Paroxysmal atrial fibrillation Is this a current diagnosis for this admission?: Yes (11) Hyponatremia Is this a current diagnosis for this admission?: Yes (12) Alzheimer's disease with late onset Qualifiers: Dementia behavioral disturbance: without behavioral disturbance Qualified Code(s): G30.1 - Alzheimer's disease with late onset; F02.80 - Dementia in other diseases classified elsewhere without behavioral disturbance Is this a current diagnosis for this admission?: Yes - Inpatient Certification Medical Necessity: Failure to Improve With Outpatient Therapy, Significant Comorbidiites Make Outpatient Treatment Too Risky, Need Close Monitoring Due to Risk of Patient Decompensation, Need for IV Antibiotics, Risk of Complication if Not Cared For in Hospital, Risk of Diagnosis Which Will Require Inpatient Eval/Care/Monitoring
[2018-12-23] MEDS: ENOXAPARIN SODIUM INJ 30 MG/0.3 ML DISP.SYRIN SUBCUT SCH (09:19)
[2018-12-24] MEDS: PIPERACILLIN SODIUM/TAZOBACTAM 2.25 GM in NORMAL SALINE 50 ML IV SCH ×4 (03:03→20:47)
[2018-12-24] MEDS: HYDROXYZINE PAMOATE 25 MG CAPSULE PO SCH ×4 (05:15→23:47)
--- NOTE | 2018-12-24 08:02 | PDOC PROGRESS REPORT ---
Subjective Progress Note for:: 12/24/18 Subjective:: itch Reason For Visit: LACTIC ACIDOSIS Physical Exam Vital Signs: Temp Pulse Resp BP Pulse Ox 97.6 F 91 18 133/57 H 99 12/23/18 14:40 12/23/18 14:40 12/23/18 14:40 12/23/18 14:40 12/23/18 14:40 Intake & Output 12/22/18 12/23/18 12/24/18 07:59 07:59 07:59 Intake Total 300 768 800 Output Total 800 400 Balance -500 768 400 Weight 192 lb 10.944 oz 194 lb 14.218 oz General appearance: PRESENT: no acute distress Respiratory exam: PRESENT: clear to auscultation ferny Cardiovascular exam: ABSENT: diastolic murmur, irregular rhythm, systolic murmur GI/Abdominal exam: ABSENT: mass, organolmegaly, tenderness Extremities exam: PRESENT: pedal edema Neurological exam: ABSENT: oriented to situation Psychiatric exam: PRESENT: appropriate affect Results Laboratory Results: 12/18/18 12:40 12/21/18 05:47 12/18/18 15:00 Blood Blood Culture - Final NO GROWTH IN 5 DAYS 12/18/18 13:45 Blood Blood Culture - Final NO GROWTH IN 5 DAYS Impressions: Head CT 12/18/18 00:00 IMPRESSION: No acute findings. EVIDENCE OF ACUTE STROKE: NO. Chest X-Ray 12/21/18 07:00 IMPRESSION: NO ACUTE RADIOGRAPHIC FINDING IN THE CHEST. Assessment & Plan - Diagnosis (1) Dysphagia Qualifiers: Dysphagia type: unspecified Qualified Code(s): R13.10 - Dysphagia, unspecified Is this a current diagnosis for this admission?: Yes Plan: no ST yet. Reconsulted. (2) Acute cystitis without hematuria Is this a current diagnosis for this admission?: Yes Plan: afebrile d7 zosyn (3) Lactic acidosis Is this a current diagnosis for this admission?: Yes (4) Acute on chronic renal failure Qualifiers: Acute renal failure type: with acute renal cortical necrosis Chronic kidney disease stage: stage 4 (severe) Qualified Code(s): N17.1 - Acute kidney failure with acute cortical necrosis; N18.4 - Chronic kidney disease, stage 4 (severe) Is this a current diagnosis for this admission?: Yes (5) Chronic combined systolic and diastolic heart failure Is this a current diagnosis for this admission?: Yes (6) Desquamative dermatitis Is this a current diagnosis for this admission?: Yes Plan: slowly improving (7) Other hydronephrosis Is this a current diagnosis for this admission?: Yes (9) Cerebral infarction due to thrombosis of right middle cerebral artery Is this a current diagnosis for this admission?: Yes (10) Paroxysmal atrial fibrillation Is this a current diagnosis for this admission?: Yes (11) Hyponatremia Is this a current diagnosis for this admission?: Yes (12) Alzheimer's disease with late onset Qualifiers: Dementia behavioral disturbance: without behavioral disturbance Qualified Code(s): G30.1 - Alzheimer's disease with late onset; F02.80 - Dementia in other diseases classified elsewhere without behavioral disturbance Is this a current diagnosis for this admission?: Yes - Inpatient Certification Medical Necessity: Failure to Improve With Outpatient Therapy, Significant Comorbidiites Make Outpatient Treatment Too Risky, Need Close Monitoring Due to Risk of Patient Decompensation, Need for IV Antibiotics, Risk of Complication if Not Cared For in Hospital, Risk of Diagnosis Which Will Require Inpatient Eval/Care/Monitoring
[2018-12-24] MEDS: ENOXAPARIN SODIUM INJ 30 MG/0.3 ML DISP.SYRIN SUBCUT SCH (09:52)
[2018-12-25] MEDS: PIPERACILLIN SODIUM/TAZOBACTAM 2.25 GM in NORMAL SALINE 50 ML IV SCH ×3 (02:46→14:53)
[2018-12-25] MEDS: HYDROXYZINE PAMOATE 25 MG CAPSULE PO SCH ×3 (05:50→18:01)
--- NOTE | 2018-12-25 07:29 | PDOC PROGRESS REPORT ---
Subjective Progress Note for:: 12/25/18 Subjective:: itch much less. Nursed noted loose black stools. Reason For Visit: LACTIC ACIDOSIS Physical Exam Vital Signs: Temp Pulse Resp BP Pulse Ox 98.3 F 95 19 159/72 H 100 12/24/18 23:28 12/24/18 23:28 12/24/18 23:28 12/24/18 23:28 12/24/18 23:28 Intake & Output 12/23/18 12/24/18 12/25/18 07:59 07:59 07:59 Intake Total 017 627 8345 Output Total 400 Balance 430 875 6251 Weight 192 lb 10.944 oz 194 lb 14.218 oz 195 lb 5.273 oz General appearance: PRESENT: no acute distress Respiratory exam: PRESENT: clear to auscultation ferny Cardiovascular exam: PRESENT: irregular rhythm. ABSENT: diastolic murmur, systolic murmur GI/Abdominal exam: ABSENT: mass, organolmegaly, tenderness Extremities exam: PRESENT: pedal edema Neurological exam: ABSENT: oriented to situation Psychiatric exam: PRESENT: appropriate affect Results Laboratory Results: 12/18/18 12:40 12/21/18 05:47 Impressions: Head CT 12/18/18 00:00 IMPRESSION: No acute findings. EVIDENCE OF ACUTE STROKE: NO. Chest X-Ray 12/21/18 07:00 IMPRESSION: NO ACUTE RADIOGRAPHIC FINDING IN THE CHEST. Assessment & Plan - Diagnosis (1) Acute cystitis without hematuria Is this a current diagnosis for this admission?: Yes Plan: finished zosyn. Check Cdiff & occult blood. Start pantoprazole. (2) Lactic acidosis Is this a current diagnosis for this admission?: Yes (3) Acute on chronic renal failure Qualifiers: Acute renal failure type: with acute renal cortical necrosis Chronic kidney disease stage: stage 4 (severe) Qualified Code(s): N17.1 - Acute kidney failure with acute cortical necrosis; N18.4 - Chronic kidney disease, stage 4 (severe) Is this a current diagnosis for this admission?: Yes (4) Chronic combined systolic and diastolic heart failure Is this a current diagnosis for this admission?: Yes Plan: added metoprolol for higher bp (5) Desquamative dermatitis Is this a current diagnosis for this admission?: Yes (6) Other hydronephrosis Is this a current diagnosis for this admission?: Yes (8) Cerebral infarction due to thrombosis of right middle cerebral artery Is this a current diagnosis for this admission?: Yes (9) Paroxysmal atrial fibrillation Is this a current diagnosis for this admission?: Yes (10) Hyponatremia Is this a current diagnosis for this admission?: Yes (11) Alzheimer's disease with late onset Qualifiers: Dementia behavioral disturbance: without behavioral disturbance Qualified Code(s): G30.1 - Alzheimer's disease with late onset; F02.80 - Dementia in other diseases classified elsewhere without behavioral disturbance Is this a current diagnosis for this admission?: Yes (12) Dysphagia Qualifiers: Dysphagia type: unspecified Qualified Code(s): R13.10 - Dysphagia, unspecified Is this a current diagnosis for this admission?: Yes Plan: ST suggested crushing pills
[2018-12-25] MEDS: PANTOPRAZOLE SODIUM 40 MG TABLET.DR PO SCH (08:36)
[2018-12-25] MEDS: ENOXAPARIN SODIUM INJ 30 MG/0.3 ML DISP.SYRIN SUBCUT SCH (09:42)
[2018-12-25] MEDS ORDERED: METOPROLOL SUCCINATE 50 MG TAB.SR.24H PO SCH (10:00)
[2018-12-25 11:49] LABS: HEMATOCRIT 25.8 % (37.9-51.0); HEMOGLOBIN 8.7 g/dL (13.5-17.0); MEAN CORPUSCULAR HGB CONC 33.8 g/dL (32.0-36.0); MEAN CORPUSCULAR VOLUME 83 fl (80-97); PLATELET COUNT 264 10^3/uL (150-450); RED BLOOD COUNT 3.11 10^6/uL (4.35-5.55); RED CELL DISTRIBUTION WIDTH 17.4 % (11.5-14.0); WHITE BLOOD COUNT 6.1 10^3/uL (4.0-10.5)
[2018-12-26] MEDS: HYDROXYZINE PAMOATE 25 MG CAPSULE PO SCH ×5 (00:20→23:35)
[2018-12-26] MEDS: PANTOPRAZOLE SODIUM 40 MG TABLET.DR PO SCH (05:57)
--- NOTE | 2018-12-26 08:28 | PDOC PROGRESS REPORT ---
Subjective Progress Note for:: 12/26/18 Subjective:: 2010 PUD. No abdominal pain. Melana again. Reason For Visit: LACTIC ACIDOSIS Physical Exam Vital Signs: Temp Pulse Resp BP Pulse Ox 97.3 F 78 18 132/61 H 100 12/25/18 23:18 12/25/18 23:18 12/25/18 23:18 12/25/18 23:18 12/25/18 23:18 Intake & Output 12/25/18 12/26/18 12/27/18 07:59 07:59 07:59 Intake Total 1560 1370 Output Total 400 Balance 1560 970 Weight 195 lb 5.273 oz 193 lb 1.999 oz General appearance: PRESENT: no acute distress Respiratory exam: PRESENT: clear to auscultation ferny Cardiovascular exam: ABSENT: diastolic murmur, irregular rhythm, systolic murmur GI/Abdominal exam: ABSENT: mass, organolmegaly, tenderness Extremities exam: PRESENT: pedal edema Neurological exam: ABSENT: oriented to situation Psychiatric exam: PRESENT: appropriate affect Skin exam: ABSENT: erythema Results Laboratory Results: 12/25/18 11:19 12/21/18 05:47 12/25/18 12/25/18 10:05 11:19 WBC 6.1 RBC 3.11 L Hgb 8.7 L Hct 25.8 L MCV 83 MCH 28.0 MCHC 33.8 RDW 17.4 H Plt Count 264 Stool Occult Blood POSITIVE Impressions: Head CT 12/18/18 00:00 IMPRESSION: No acute findings. EVIDENCE OF ACUTE STROKE: NO. Chest X-Ray 12/21/18 07:00 IMPRESSION: NO ACUTE RADIOGRAPHIC FINDING IN THE CHEST. Assessment & Plan - Diagnosis (1) Acute cystitis without hematuria Is this a current diagnosis for this admission?: Yes (2) Melena Is this a current diagnosis for this admission?: Yes Plan: iron studies. UGI. CBC. ?prbc (3) Acute on chronic renal failure Qualifiers: Acute renal failure type: with acute renal cortical necrosis Chronic kidney disease stage: stage 4 (severe) Qualified Code(s): N17.1 - Acute kidney fail ure with acute cortical necrosis; N18.4 - Chronic kidney disease, stage 4 (severe) Is this a current diagnosis for this admission?: Yes (4) Desquamative dermatitis Is this a current diagnosis for this admission?: Yes (5) Chronic combined systolic and diastolic heart failure Is this a current diagnosis for this admission?: Yes (6) Other hydronephrosis Is this a current diagnosis for this admission?: Yes (8) Cerebral infarction due to thrombosis of right middle cerebral artery Is this a current diagnosis for this admission?: Yes (9) Paroxysmal atrial fibrillation Is this a current diagnosis for this admission?: Yes (10) Hyponatremia Is this a current diagnosis for this admission?: Yes (11) Alzheimer's disease with late onset Qualifiers: Dementia behavioral disturbance: without behavioral disturbance Qualified Code(s): G30.1 - Alzheimer's disease with late onset; F02.80 - Dementia in other diseases classified elsewhere without behavioral disturbance Is this a current diagnosis for this admission?: Yes (12) Dysphagia Qualifiers: Dysphagia type: unspecified Qualified Code(s): R13.10 - Dysphagia, unspecified Is this a current diagnosis for this admission?: Yes (13) Lactic acidosis Is this a current diagnosis for this admission?: Yes
[2018-12-26 10:49] LABS: ABSOLUTE RETICS # 0.084 10^6/uL (0.028-0.122); HEMATOCRIT 27.3 % (37.9-51.0); HEMOGLOBIN 9.1 g/dL (13.5-17.0); MEAN CORPUSCULAR HEMOGLOBIN 27.9 pg (27.0-33.4); MEAN CORPUSCULAR HGB CONC 33.4 g/dL (32.0-36.0); MEAN CORPUSCULAR VOLUME 84 fl (80-97); PLATELET COUNT 268 10^3/uL (150-450); RED BLOOD COUNT 3.27 10^6/uL (4.35-5.55); RED CELL DISTRIBUTION WIDTH 17.3 % (11.5-14.0); RETICULOCYTE COUNT (AUTO) 2.57 % (0.66-2.85); WHITE BLOOD COUNT 5.5 10^3/uL (4.0-10.5)
[2018-12-26 11:06] LABS: IRON(TIBC) 34.6 ug/dL (49-181)
[2018-12-26 12:15] LABS: FOLATE 4.88 ng/mL (>2.76)
--- NOTE | 2018-12-26 12:58 | RADIOLOGY REPORT (SQ) ---
EXAM DESCRIPTION: UGI SERIES COMPLETED DATE/TIME: 12/26/2018 9:13 am REASON FOR STUDY: ugi bleed. History DUD COMPARISON: None. TECHNIQUE: Under fluoroscopic guidance, patient ingested thin barium. Fluoroscopic spot images and r outine radiographic images acquired and stored on PACS. LIMITATIONS: None. FLUOROSCOPY TIME: FLUORO TIME: 2.9 minutes of fluoroscopy was used. 27 images saved to PACS. FINDINGS: NEUROMUSCULAR COORDINATION OF SWALLOW: Normal. No aspiration. ESOPHAGEAL MOTILITY: Esophageal dysmotility with stasis of barium within the esophagus. Tertiary con tractions are identified. ESOPHAGEAL MUCOSA: Normal mucosa without masses or ulceration. GASTRO-ESOPHAGEAL JUNCTION: No hiatal hernia. Free-flowing gastroesophageal reflux noted. . STOMACH: There is loss of normal mucosal folds of the stomach. The mucosa is very smooth in appearan ce and may indicate atrophic gastritis. GASTRIC OUTLET: No delay in emptying. Normal pylorus. DUODENAL BULB: The duodenal bulb is nodular appearance with a 1 cm outpouching extending inferiorly o ff the proximal portion, which may represent ulcer crater or diverticulum, although this is an unusua l area for diverticulum. There is poor distention of the duodenum bulb. DUODENUM: The remainder the duodenum is unremarkable. . PROXIMAL JEJUNUM: Normal mucosal pattern. No dilatation, segmentation, strictures or masses. NON-GI TRACT STRUCTURES: No significant finding. OTHER: No other significant finding. IMPRESSION: 1. ABNORMAL GASTRIC MUCOSA WITH LOSS OF NORMAL FOLDS WITH SMOOTH APPEARANCE, MAY INDICA TE ATROPHIC GASTRITIS. 2. NODULAR APPEARING DUODENAL BULB WITH NODULAR APPEARANCE AND POOR DISTENSION. 1 CM OUTPOUCHING AL OJECTING INFERIORLY OFF THE PROXIMAL PORTION OF THE DUODENAL BULB MAY BE ULCER CRATER OR DIVERTICULUM , ALTHOUGH THIS IS ABNORMAL APPEARANCE FOR DIVERTICULUM. CHRONIC SCARRING IS SUGGESTED ALSO. 3. SEVERE ESOPHAGEAL DYSMOTILITY WITH TERTIARY CONTRACTIONS AND MODERATE FREE-FLOWING GASTROESOPHAGE AL REFLUX. COMMENT: Quality ID [id number]: Final reports for procedures using fluoroscopy that document radiation exp osure indices, or exposure time and number of fluorographic images (if radiation exposure indices are not available) TECHNICAL DOCUMENTATION: JOB ID: [id number] [employer]- All Rights Reserved Reading location - IP/workstation name: [id number]
[2018-12-27] MEDS: HYDROXYZINE PAMOATE 25 MG CAPSULE PO SCH ×3 (05:55→17:09)
[2018-12-27] MEDS: PANTOPRAZOLE SODIUM 40 MG TABLET.DR PO SCH (05:55)
--- NOTE | 2018-12-27 07:30 | PDOC PROGRESS REPORT ---
Subjective Progress Note for:: 12/27/18 Subjective:: no abdominal pain Reason For Visit: LACTIC ACIDOSIS Physical Exam Vital Signs: Temp Pulse Resp BP Pulse Ox 97.5 F 71 15 141/59 H 99 12/26/18 23:19 12/26/18 23:19 12/26/18 23:19 12/26/18 23:19 12/26/18 23:19 Intake & Output 12/25/18 12/26/18 12/27/18 07:59 07:59 07:59 Intake Total 1560 1370 662 Output Total 400 1200 Balance 1560 970 -538 Weight 195 lb 5.273 oz 193 lb 1.999 oz 119 lb 14.903 oz General appearance: PRESENT: no acute distress Respiratory exam: PRESENT: clear to auscultation ferny Cardiovascular exam: ABSENT: diastolic murmur, irregular rhythm, systolic murmur GI/Abdominal exam: ABSENT: mass, organolmegaly, tenderness Extremities exam: PRESENT: pedal edema - much less Neurological exam: PRESENT: alert. ABSENT: oriented to situation Psychiatric exam: PRESENT: appropriate affect Results Laboratory Results: 12/26/18 10:25 12/21/18 05:47 12/26/18 12/26/18 10:25 10:25 WBC 5.5 RBC 3.27 L Hgb 9.1 L Hct 27.3 L MCV 84 MCH 27.9 MCHC 33.4 RDW 17.3 H Plt Count 268 Retic Count (auto) 2.57 Absolute Retic 0.084 Iron 34.6 L TIBC 172 L % Saturation 20 Ferritin 244.00 Vitamin B12 479.0 Folate 4.88 Impressions: Head CT 12/18/18 00:00 IMPRESSION: No acute findings. EVIDENCE OF ACUTE STROKE: NO. Chest X-Ray 12/21/18 07:00 IMPRESSION: NO ACUTE RADIOGRAPHIC FINDING IN THE CHEST. Upper GI Series 12/26/18 00:00 IMPRESSION: 1. ABNORMAL GASTRIC MUCOSA WITH LOSS OF NORMAL FOLDS WITH SMOOTH APPEARANCE, MAY INDICATE ATROPHIC GASTRITIS. 2. NODULAR APPEARING DUODENAL BULB WITH NODULAR APPEARANCE AND POOR DISTENSION. 1 CM OUTPOUCHING PROJECTING INFERIORLY OFF THE PROXIMAL PORTION OF THE DUODENAL BULB MAY BE ULCER CRATER OR DIVERTICULUM, ALTHOUGH THIS IS ABNORMAL APPEARANCE FOR DIVERTICULUM. CHRONIC SCARRING IS SUGGESTED ALSO. 3. SEVERE ESOPHAGEAL DYSMOTILITY WITH TERTIARY CONTRACTIONS AND MODERATE FREE-FLOWING GASTROESOPHAGEAL REFLUX. Assessment & Plan - Diagnosis (1) Duodenal ulcer Is this a current diagnosis for this admission?: Yes Plan: ugi+ crater 1cm. Anti H pylori. (2) Acute cystitis without hematuria Is this a current diagnosis for this admission?: Yes Plan: continue zosyn (3) Anemia in chronic kidney disease Qualifiers: Chronic kidney disease stage: stage 3 (moderate) Qualified Code(s): N18.3 - Chronic kidney disease, stage 3 (moderate); D63.1 - Anemia in chronic kidney disease Is this a current diagnosis for this admission?: Yes Plan: ibc low (4) Melena Is this a current diagnosis for this admission?: Yes (5) Acute on chronic renal failure Qualifiers: Acute renal failure type: with acute renal cortical necrosis Chronic kidney disease stage: stage 4 (severe) Qualified Code(s): N17.1 - Acute kidney failure with acute cortical necrosis; N18.4 - Chronic kidney disease, stage 4 (severe) Is this a current diagnosis for this admission?: Yes (6) Desquamative dermatitis Is this a current diagnosis for this admission?: Yes (7) Chronic combined systolic and diastolic heart failure Is this a current diagnosis for this admission?: Yes (8) Other hydronephrosis Is this a current diagnosis for this admission?: Yes (10) Cerebral infarction due to thrombosis of right middle cerebral artery Is this a current diagnosis for this admission?: Yes (11) Paroxysmal atrial fibrillation Is this a current diagnosis for this admission?: Yes (12) Hyponatremia Is this a current diagnosis for this admission?: Yes (13) Alzheimer's disease with late onset Qualifiers: Dementia behavioral disturbance: without behavioral disturbance Qualified Code(s): G30.1 - Alzheimer's disease with late onset; F02.80 - Dementia in other diseases classified elsewhere without behavioral disturbance Is this a current diagnosis for this admission?: Yes (14) Dysphagia Qualifiers: Dysphagia type: unspecified Qualified Code(s): R13.10 - Dysphagia, unspecified Is this a current diagnosis for this admission?: Yes (15) Lactic acidosis Is this a current diagnosis for this admission?: Yes (16) Anemia due to blood loss, acute Is this a current diagnosis for this admission?: Yes Plan: hct up to 27. Ferritin ok.
[2018-12-28] MEDS: PANTOPRAZOLE SODIUM 40 MG TABLET.DR PO SCH (06:01)
[2018-12-28] MEDS: HYDROXYZINE PAMOATE 25 MG CAPSULE PO SCH ×5 (06:01→23:14)
--- NOTE | 2018-12-28 07:33 | PDOC PROGRESS REPORT ---
Subjective Progress Note for:: 12/28/18 Subjective:: no complaints Reason For Visit: LACTIC ACIDOSIS Physical Exam Vital Signs: Temp Pulse Resp BP Pulse Ox 98.4 F 86 16 136/62 H 100 12/27/18 23:41 12/27/18 23:41 12/27/18 23:41 12/27/18 23:41 12/27/18 23:41 Intake & Output 12/26/18 12/27/18 12/28/18 07:59 07:59 07:59 Intake Total 1370 662 720 Output Total 400 1200 500 Balance 970 -538 220 Weight 193 lb 1.999 oz 119 lb 14.903 oz 119 lb 14.903 oz General appearance: PRESENT: no acute distress Respiratory exam: PRESENT: clear to auscultation ferny Cardiovascular exam: ABSENT: diastolic murmur, irregular rhythm, systolic murmur GI/Abdominal exam: ABSENT: mass, organolmegaly, tenderness Extremities exam: PRESENT: pedal edema Neurological exam: PRESENT: alert Psychiatric exam: PRESENT: appropriate affect Results Laboratory Results: 12/26/18 10:25 12/21/18 05:47 Impressions: Head CT 12/18/18 00:00 IMPRESSION: No acute findings. EVIDENCE OF ACUTE STROKE: NO. Chest X-Ray 12/21/18 07:00 IMPRESSION: NO ACUTE RADIOGRAPHIC FINDING IN THE CHEST. Upper GI Series 12/26/18 00:00 IMPRESSION: 1. ABNORMAL GASTRIC MUCOSA WITH LOSS OF NORMAL FOLDS WITH SMOOTH APPEARANCE, MAY INDICATE ATROPHIC GASTRITIS. 2. NODULAR APPEARING DUODENAL BULB WITH NODULAR APPEARANCE AND POOR DISTENSION. 1 CM OUTPOUCHING PROJECTING INFERIORLY OFF THE PROXIMAL PORTION OF THE DUODENAL BULB MAY BE ULCER CRATER OR DIVERTICULUM, ALTHOUGH THIS IS ABNORMAL APPEARANCE FOR DIVERTICULUM. CHRONIC SCARRING IS SUGGESTED ALSO. 3. SEVERE ESOPHAGEAL DYSMOTILITY WITH TERTIARY CONTRACTIONS AND MODERATE FREE-FLOWING GASTROESOPHAGEAL REFLUX. Assessment & Plan - Diagnosis (1) Duodenal ulcer Is this a current diagnosis for this admission?: Yes Plan: awaiting anti H pylori (2) Acute cystitis without hematuria Is this a current diagnosis for this admission?: Yes (3) Anemia in chronic kidney disease Qualifiers: Chronic kidney disease stage: stage 3 (moderate) Qualified Code(s): N18.3 - Chronic kidney disease, stage 3 (moderate); D63.1 - Anemia in chronic kidney disease Is this a current diagnosis for this admission?: Yes (4) Melena Is this a current diagnosis for this admission?: Yes (5) Acute on chronic renal failure Qualifiers: Acute renal failure type: with acute renal cortical necrosis Chronic kidney disease stage: stage 4 (severe) Qualified Code(s): N17.1 - Acute kidney failure with acute cortical necrosis; N18.4 - Chronic kidney disease, stage 4 (severe) Is this a current diagnosis for this admission?: Yes (6) Desquamative dermatitis Is this a current diagnosis for this admission?: Yes (7) Chronic combined systolic and diastolic heart failure Is this a current diagnosis for this admission?: Yes Plan: metoprolol (8) Other hydronephrosis Is this a current diagnosis for this admission?: Yes (10) Cerebral infarction due to thrombosis of right middle cerebral artery Is this a current diagnosis for this admission?: Yes (11) Paroxysmal atrial fibrillation Is this a current diagnosis for this admission?: Yes (12) Hyponatremia Is this a current diagnosis for this admission?: Yes (13) Alzheimer's disease with late onset Qualifiers: Dementia behavioral disturbance: without behavioral disturbance Qualified Code(s): G30.1 - Alzheimer's disease with late onset; F02.80 - Dementia in other diseases classified elsewhere without behavioral disturbance Is this a current diagnosis for this admission?: Yes (14) Dysphagia Qualifiers: Dysphagia type: unspecified Qualified Code(s): R13.10 - Dysphagia, unspecified Is this a current diagnosis for this admission?: Yes (15) Lactic acidosis Is this a current diagnosis for this admission?: Yes (16) Anemia due to blood loss, acute Is this a current diagnosis for this admission?: Yes - Inpatient Certification Medical Necessity: Failure to Improve With Outpatient Therapy, Significant Comorbidiites Make Outpatient Treatment Too Risky, Need Close Monitoring Due to Risk of Patient Decompensation, Risk of Complication if Not Cared For in Hospital, Risk of Diagnosis Which Will Require Inpatient Eval/Care/Monitoring
[2018-12-28] MEDS: METOPROLOL SUCCINATE 50 MG TAB.SR.24H PO SCH (10:26)
[2018-12-29] MEDS: PANTOPRAZOLE SODIUM 40 MG TABLET.DR PO SCH (06:23)
--- NOTE | 2018-12-29 08:22 | PDOC TRANSFER SUMMARY ---
General Admission Date/PCP: 12/18/18 15:48 SG CUEVAS MD Admission Date: 12/18/18 Transfer Date: 12/29/18 Accepting Facility: Other (Comments) - [facility] Resuscitation Status: Full Code - Transfer Diagnosis (1) Duodenal ulcer Is this a current diagnosis for this admission?: Yes (2) Acute cystitis without hematuria Is this a current diagnosis for this admission?: Yes (3) Anemia in chronic kidney disease Is this a current diagnosis for this admission?: Yes (4) Melena Is this a current diagnosis for this admission?: Yes (5) Acute on chronic renal failure Is this a current diagnosis for this admission?: Yes (6) Desquamative dermatitis Is this a current diagnosis for this admission?: Yes (7) Chronic combined systolic and diastolic heart failure Is this a current diagnosis for this admission?: Yes (8) Other hydronephrosis Is this a current diagnosis for this admission?: Yes (10) Cerebral infarction due to thrombosis of right middle cerebral artery Is this a current diagnosis for this admission?: Yes (11) Paroxysmal atrial fibrillation Is this a current diagnosis for this admission?: Yes (12) Hyponatremia Is this a current diagnosis for this admission?: Yes (13) Alzheimer's disease with late onset Is this a current diagnosis for this admission?: Yes (14) Dysphagia Is this a current diagnosis for this admission?: Yes (15) Lactic acidosis Is this a current diagnosis for this admission?: Yes (16) Anemia due to blood loss, acute Is this a current diagnosis for this admission?: Yes - Transfer Medications Transfer Medications: Current Medications Metoprolol Succinate (Toprol Xl 50 Mg Tab.Sr) 50 mg PO DAILY [facility] Stop: 01/27/19 09:59 Last Admin: 12/28/18 10:26 Dose: 50 mg Documented by: Pantoprazole Sodium (Protonix [address] Tablet) 40 mg PO Q6AM [facility] Stop: 01/24/19 07:59 Last Admin: 12/29/18 06:23 Dose: 40 mg Documented by: - Allergies Allergies/Adverse Reactions: hydralazine Allergy (Intermediate, Verified 12/29/18 05:08) Exfoliative Dermatitis - Diet/Activity Discharge Diet: Regular Discharge Activity: Supervised Activity Hospital Course Hospital Course: Diffuse red desquamating rash improved off hydralazine. Urine grew pseudomanas and providentia sensitive to zosyn which he had for a week. Lactic acidosis and hyponatremia improved. Hct fell 8 points. UGI showed recurrent duodenal ulcer. Anti H pylori is pentding. Pantoprazole was started. He had tertiary contractions. He passed bedside swallow eval & went back to thin liquids. Edema improved off furosemide. Physical Exam Vital Signs: Temp Pulse Resp BP Pulse Ox 97.3 F 69 17 156/61 H 100 12/28/18 23:14 12/28/18 23:14 12/28/18 23:14 12/28/18 23:14 12/28/18 23:14 Intake & Output 12/28/18 12/29/18 12/30/18 07:59 07:59 07:59 Intake Total 720 Output Total 500 1125 Balance 220 -1125 Weight 119 lb 14.903 oz 121 lb 0.54 oz General appearance: PRESENT: no acute distress Respiratory exam: PRESENT: clear to auscultation ferny Cardiovascular exam: ABSENT: diastolic murmur, irregular rhythm, systolic murmur GI/Abdominal exam: ABSENT: mass, organolmegaly, tenderness Extremities exam: PRESENT: pedal edema - R trace L 1+ Neurological exam: PRESENT: alert Psychiatric exam: PRESENT: appropriate affect Results Laboratory Results: Labs- Last Values WBC 5.5 10^3/uL (4.0-10.5) 12/26/18 10:25 RBC 3.27 10^6/uL (4.35-5.55) L 12/26/18 10:25 Hgb 9.1 g/dL (13.5-17.0) L 12/26/18 10:25 Hct 27.3 % (37.9-51.0) L 12/26/18 10:25 MCV 84 fl (80-97) 12/26/18 10:25 MCH 27.9 pg (27.0-33.4) 12/26/18 10:25 MCHC 33.4 g/dL (32.0-36.0) 12/26/18 10:25 RDW 17.3 % (11.5-14.0) H 12/26/18 10:25 Plt Count 268 10^3/uL (150-450) 12/26/18 10:25 Seg Neutrophils % 81.1 % (42-78) H 12/18/18 12:40 Lymphocytes % 12.0 % (13-45) L 12/18/18 12:40 Monocytes % 4.5 % (3-13) 12/18/18 12:40 Eosinophils % 1.9 % (0-6) 12/18/18 12:40 Basophils % 0.5 % (0-2) 12/18/18 12:40 Absolute Neutrophils 5.4 10^3/uL (1.7-8.2) 12/18/18 12:40 Absolute Lymphocytes 0.8 10^3/uL (0.5-4.7) 12/18/18 12:40 Absolute Monocytes 0.3 10^3/uL (0.1-1.4) 12/18/18 12:40 Absolute Eosinophils 0.1 10^3/uL (0.0-0.6) 12/18/18 12:40 Absolute Basophils 0.0 10^3/uL (0.0-0.2) 12/18/18 12:40 Retic Count (auto) 2.57 % (0.66-2.85) 12/26/18 10:25 Absolute Retic 0.084 10^6/uL (0.028-0.122) 12/26/18 10:25 PT 15.0 SEC (11.4-15.4) 12/18/18 12:40 INR 1.17 12/18/18 12:40 VBG pH 7.29 (7.30-7.42) L 12/18/18 13:45 VBG pCO2 35.4 mmHg (35-63) 12/18/18 13:45 VBG HCO3 16.4 mmol/L (20-32) L 12/18/18 13:45 VBG Base Excess -9.3 mmol/L 12/18/18 13:45 Sodium 135.5 mmol/L (137-145) L 12/21/18 05:47 Potassium 4.2 mmol/L (3.6-5.0) 12/21/18 05:47 Chloride 107 mmol/L (98-107) 12/21/18 05:47 Carbon Dioxide 20 mmol/L (22-30) L 12/21/18 05:47 Anion Gap 9 (5-19) 12/21/18 05:47 BUN 32 mg/dL (7-20) H 12/21/18 05:47 Creatinine 2.34 mg/dL (0.52-1.25) H 12/21/18 05:47 Est GFR ( Amer) 32 (>60) L 12/21/18 05:47 Est GFR (Non-Af Amer) 26 (>60) L 12/21/18 05:47 Glucose 95 mg/dL (75-110) 12/21/18 05:47 POC Glucose 153 mg/dL (70-110) H 12/18/18 13:33 Lactic Acid 1.4 mmol/L (0.7-2.1) 12/20/18 07:54 Calcium 7.9 mg/dL (8.4-10.2) L 12/21/18 05:47 Iron 34.6 ug/dL (49-181) L 12/26/18 10:25 TIBC 172 ug/dL (250-450) L 12/26/18 10:25 % Saturation 20 % 12/26/18 10:25 Ferritin 244.00 ng/mL (17.9-464.0) 12/26/18 10:25 Total Bilirubin 0.7 mg/dL (0.2-1.3) 12/18/18 12:40 Direct Bilirubin 0.6 mg/dL (0.0-0.4) H 12/18/18 12:40 Neonat Total Bilirubin Not Reportable 12/18/18 12:40 Neonat Direct Bilirubin Not Reportable 12/18/18 12:40 Neonat Indirect Bili Not Reportable 12/18/18 12:40 AST 41 U/L (17-59) 12/18/18 12:40 ALT 30 U/L (21-72) 12/18/18 12:40 Alkaline Phosphatase 102 U/L (38-126) 12/18/18 12:40 Troponin I < 0.012 ng/mL 12/18/18 12:40 Total Protein 6.1 g/dL (6.3-8.2) L 12/18/18 12:40 Albumin 3.3 g/dL (3.5-5.0) L 12/18/18 12:40 Vitamin B12 479.0 pg/mL (239-931) 12/26/18 10:25 Folate 4.88 ng/mL (>2.76) 12/26/18 10:25 Urine Color YELLOW 12/19/18 06:05 Urine Appearance CLEAR 12/19/18 06:05 Urine pH 5.0 (5.0-9.0) 12/19/18 06:05 Ur Specific [place] 1.011 12/19/18 06:05 Urine Protein NEGATIVE mg/dL (NEGATIVE) 12/19/18 06:05 Urine Glucose (UA) NEGATIVE mg/dL (NEGATIVE) 12/19/18 06:05 Urine Ketones NEGATIVE mg/dL (NEGATIVE) 12/19/18 06:05 Urine Blood NEGATIVE (NEGATIVE) 12/19/18 06:05 Urine Nitrite NEGATIVE (NEGATIVE) 12/19/18 06:05 Urine Bilirubin NEGATIVE (NEGATIVE) 12/19/18 06:05 Urine Urobilinogen NEGATIVE mg/dL (<2.0) 12/19/18 06:05 Ur Leukocyte Esterase TRACE (NEGATIVE) H 12/19/18 06:05 Urine WBC (Auto) 0 /HPF 12/19/18 06:05 Urine RBC (Auto) 1 /HPF 12/19/18 06:05 U Hyaline Cast (Auto) 3 /LPF 12/19/18 06:05 Urine Bacteria (Auto) TRACE /HPF 12/19/18 06:05 Squamous Epi Cells Auto 2 /HPF 12/19/18 06:05 Urine Mucus (Auto) RARE /LPF 12/19/18 06:05 Urine Ascorbic Acid NEGATIVE (NEGATIVE) 12/19/18 06:05 Stool Occult Blood POSITIVE (NEGATIVE) 12/25/18 10:05 C. difficile Tox (PCR) NEGATIVE (NEGATIVE) 12/25/18 10:05 Impressions: Head CT 12/18/18 00:00 IMPRESSION: No acute findings. EVIDENCE OF ACUTE STROKE: NO. Chest X-Ray 12/21/18 07:00 IMPRESSION: NO ACUTE RADIOGRAPHIC FINDING IN THE CHEST. Upper GI Series 12/26/18 00:00 IMPRESSION: 1. ABNORMAL GASTRIC MUCOSA WITH LOSS OF NORMAL FOLDS WITH SMOOTH APPEARANCE, MAY INDICATE ATROPHIC GASTRITIS. 2. NODULAR APPEARING DUODENAL BULB WITH NODULAR APPEARANCE AND POOR DISTENSION. 1 CM OUTPOUCHING PROJECTING INFERIORLY OFF THE PROXIMAL PORTION OF THE DUODENAL BULB MAY BE ULCER CRATER OR DIVERTICULUM, ALTHOUGH THIS IS ABNORMAL APPEARANCE FOR DIVERTICULUM. CHRONIC SCARRING IS SUGGESTED ALSO. 3. SEVERE ESOPHAGEAL DYSMOTILITY WITH TERTIARY CONTRACTIONS AND MODERATE FREE-FLOWING GASTROESOPHAGEAL REFLUX. Plan Discharge Plan: back to [facility]. I WILL FOLLOW
[2018-12-29] MEDS: METOPROLOL SUCCINATE 50 MG TAB.SR.24H PO SCH (10:58)
[2018-12-29 14:19] VITALS: BP 146/58
== END 2018-12-29 16:16 | DRG 683 ==
LOC: ER 12:54 → EH 15:48 → 4S 18:20
PROVIDERS: ADMIT Family Medicine; ATTEND Family Medicine
DX: N17.1 Acute kidney failure with acute cortical necrosis (principal); E87.2 Acidosis; N30.00 Acute cystitis without hematuria; I13.0 Hypertensive heart and chronic kidney disease with heart failure and stage 1 through stage 4 chronic kidney disease, or unspecified chronic kidney disease; I50.42 Chronic combined systolic (congestive) and diastolic (congestive) heart failure; D62 Acute posthemorrhagic anemia; K92.1 Melena; E87.1 Hypo-osmolality and hyponatremia; I48.0 Paroxysmal atrial fibrillation; K26.9 Duodenal ulcer, unspecified as acute or chronic, without hemorrhage or perforation; R13.10 Dysphagia, unspecified; D63.1 Anemia in chronic kidney disease; G30.1 Alzheimer's disease with late onset; F02.80 Dementia in other diseases classified elsewhere, unspecified severity, without behavioral disturbance, psychotic disturbance, mood disturbance, and anxiety; B96.5 Pseudomonas (aeruginosa) (mallei) (pseudomallei) as the cause of diseases classified elsewhere; N18.4 Chronic kidney disease, stage 4 (severe); N13.30 Unspecified hydronephrosis; L30.8 Other specified dermatitis; E78.5 Hyperlipidemia, unspecified; M19.90 Unspecified osteoarthritis, unspecified site; M10.9 Gout, unspecified; J30.9 Allergic rhinitis, unspecified; Z99.3 Dependence on wheelchair; Z86.73 Personal history of transient ischemic attack (TIA), and cerebral infarction without residual deficits; Z88.8 Allergy status to other drugs, medicaments and biological substances; Z87.891 Personal history of nicotine dependence; I25.2 Old myocardial infarction; Z98.1 Arthrodesis status; Z82.49 Family history of ischemic heart disease and other diseases of the circulatory system
CPT/HCPCS: 36415; 70450; 71045; 74247; 80048; 80053; 81001; 82272; 82607; 82728; 82746; 82803; 82962; 83540; 83550; 83605; 84484; 85025; 85027; 85045; 85610; 86677; 87040; 87086; 87088; 87186; 87493; 93005; 93010; 96365; 99291; J1450; J1650; J2543; J3370; J3490; J7030